=== PATIENT | female | born 1990 | race Caucasian/White ===

== ENCOUNTER → 2017-03-06 | Outpatient (CLI) | payer OTHER ==
[~2017-03-06] MED LIST: ASCO10003 PO; BCPILLS PO; FERR325T51 PO
== END | disposition home or self-care (01) ==
LOC: C.LABSPEC 17:30
PROVIDERS: ATTEND Physician Assistant
DX: N89.8 Other specified noninflammatory disorders of vagina (principal)

== ENCOUNTER → 2017-03-10 | Outpatient (CLI) | payer OTHER ==
[2017-03-10 18:15] LABS: URINE APPEARANCE CLEAR (CLEAR); URINE BILIRUBIN NEG (NEG); URINE COLOR YELLOW; URINE NITRITE NEG (NEG); UROBILINOGEN NEG (NEG)
[2017-03-10 18:23] LABS: MANUAL MICROSCOPIC REQUIRED? NO; REVIEW REQ? NO
== END | disposition home or self-care (01) ==
LOC: C.LABSPEC 17:30
PROVIDERS: ATTEND Obstetrics & Gynecology
DX: Z34.91 Encounter for supervision of normal pregnancy, unspecified, first trimester (principal)

== ENCOUNTER → 2017-03-17 | Outpatient (CLI) | payer OTHER | END | disposition home or self-care (01) | LOC: C.PAPS 07:42 | PROVIDERS: ATTEND Obstetrics & Gynecology | DX: Z34.91 Encounter for supervision of normal pregnancy, unspecified, first trimester (principal) ==

== ENCOUNTER → 2017-03-17 | Outpatient (CLI) | payer OTHER ==
[2017-03-20 00:53] LABS: CHLAMYDIA TRACH RNA*** NOT DETECTED (NOT DETECTED); GC (NEIS GONORRHOEAE)RNA** NOT DETECTED (NOT DETECTED)
== END | disposition home or self-care (01) ==
LOC: C.LABSPEC 16:30
PROVIDERS: ATTEND Obstetrics & Gynecology
DX: Z34.91 Encounter for supervision of normal pregnancy, unspecified, first trimester (principal)

== ENCOUNTER → 2017-03-17 | Outpatient (CLI) | payer OTHER ==
[2017-03-17 15:56] LABS: BASO % 0.2 %; BASO ABS # 0.02 K/uL (0-0.2); COMPLETE YES; EOS % 1.4 %; HEMATOCRIT 39.1 % (37-47); IG% 0.1 %; LYMPH % 27.3 %; LYMPH ABS # 2.27 K/uL (1.2-3.4); MEAN CELL VOLUME 89.5 fL (80-100); MEAN CORPUSCULAR HEMOGLOBIN 29.5 pg (25-34); MEAN PLATELET VOLUME 10.4 fL (7.4-10.4); MONO % 6.7 %; NEUT % 64.3 %; PLATELET COUNT 263 K/uL (130-400); RED BLOOD COUNT 4.37 M/uL (4.2-5.4); WHITE BLOOD COUNT 8.32 K/uL (4.8-10.8)
== END | disposition home or self-care (01) ==
LOC: C.LAB1850 14:43
PROVIDERS: ATTEND Obstetrics & Gynecology
DX: Z34.91 Encounter for supervision of normal pregnancy, unspecified, first trimester (principal)

== ENCOUNTER → 2017-05-19 | Outpatient (CLI) | payer OTHER ==
[2017-05-19 12:49] LABS: GTGD 50 Grams
== END | disposition home or self-care (01) ==
LOC: C.LAB1850 09:53
PROVIDERS: ATTEND Obstetrics & Gynecology
DX: Z34.91 Encounter for supervision of normal pregnancy, unspecified, first trimester (principal)

== ENCOUNTER → 2017-08-04 | Outpatient (CLI) | payer OTHER ==
[2017-08-04 11:19] LABS: URINE APPEARANCE CLEAR (CLEAR); URINE BILIRUBIN NEG (NEG); URINE COLOR YELLOW; URINE EPITHELIAL CELL AUTO >30 /lpf (0-5); URINE NITRITE NEG (NEG); URINE PH 6.5 (4.5-7.5); URINE SPECIFIC GRAVITY 1.015 (1.000-1.030); UROBILINOGEN NEG (NEG)
[2017-08-04 11:21] LABS: MANUAL MICROSCOPIC REQUIRED? NO; REVIEW REQ? NO
[2017-08-04 12:21] LABS: HEMATOCRIT 32.7 % (37-47)
[2017-08-04 12:44] LABS: GTGD 50 Grams
== END | disposition home or self-care (01) ==
LOC: C.LAB1850 10:25
PROVIDERS: ATTEND Obstetrics & Gynecology
DX: Z34.92 Encounter for supervision of normal pregnancy, unspecified, second trimester (principal)

== ENCOUNTER → 2017-09-29 | Outpatient (CLI) | payer OTHER | END | disposition home or self-care (01) | LOC: C.LABSPEC 13:46 | PROVIDERS: ATTEND Obstetrics & Gynecology | DX: Z34.93 Encounter for supervision of normal pregnancy, unspecified, third trimester (principal) ==

== ENCOUNTER 2017-10-28 16:42 | Outpatient (CLI) | payer OTHER ==
[~2017-10-28] VITALS: Ht 167.6 cm; Wt 87.3 kg
[2017-10-28 17:20] VITALS: Ht 167.6 cm; Wt 87.3 kg
[2017-10-28] MEDS ORDERED: FERR1TAB23 (17:21)
[2017-10-28] MEDS ORDERED: PRENTAB26 PO (17:21)
== END 2017-10-28 18:02 | disposition home or self-care (01) ==
LOC: C.LD 16:42 → C.OPB 16:42
PROVIDERS: ATTEND Obstetrics & Gynecology
DX: O48.0 Post-term pregnancy (principal); Z3A.40 40 weeks gestation of pregnancy

== ENCOUNTER 2017-10-28 20:09 | Inpatient (IN) | payer OTHER ==
[~2017-10-28] VITALS: Ht 167.6 cm; Wt 86.4 kg
[~2017-10-28 20:09] MED LIST changes: +FERR1TAB23; +PRENTAB26 PO
[2017-10-28] MEDS ORDERED: LACTATED RINGER'S 1000ML 1,000 ML IV PRN (20:26)
[2017-10-28] MEDS ORDERED: LACTATED RINGER'S 1000ML 1,000 ML IV SCH (20:26)
[2017-10-28 20:53] LABS: HEMATOCRIT 35.9 % (37-47); HEMOGLOBIN 12.1 g/dL (12.0-16.0); MEAN CELL VOLUME 89.1 fL (80-100); MEAN CORPUSCULAR HGB CONC 33.7 g/dl (32-36); PLATELET COUNT 281 K/uL (130-400); RED CELL DISTRIBUTION WIDTH CV 13.6 % (11.5-14.5); RED CELL DISTRIBUTION WIDTH SD 44.7 fL (36.4-46.3); WHITE BLOOD COUNT 11.11 K/uL (4.8-10.8)
[2017-10-28] MEDS ORDERED: EpHEDrine SULFATE INJ 50 MG/ML AMP ONE (21:01)
[2017-10-28] MEDS ORDERED: BUPIVACAINE 0.25% 30 ML VIAL ONE (21:01)
[2017-10-28] MEDS ORDERED: FENTANYL 2MCG/ML ROPIV 1.25MG/ML 100ML BAG EPI ONE (21:02)
[2017-10-28] MEDS ORDERED: FENTANYL CITRATE INJ 50 MCG/1 ML 2 ML VIAL ONE (21:02)
[2017-10-28] MEDS ORDERED: NALOXONE HCL INJ 1 MG in SODIUM CHLORIDE 0.9% 1000ML 1,000 ML IV PRN (21:04)
[2017-10-28] MEDS ORDERED: LACTATED RINGER'S 1000ML 500 ML IV PRN (21:04)
[2017-10-28] MEDS ORDERED: NALOXONE HCL INJ 0.4 MG/1 ML VIAL/CARP IV PRN (21:15)
[2017-10-28] MEDS ORDERED: ONDANSETRON INJ 2 MG/ML 2 ML VIAL IV PRN (21:15)
[2017-10-28] MEDS ORDERED: NALBUPHINE HCL INJ 10 MG/ML AMP IV PRN (21:15)
[2017-10-28] MEDS ORDERED: EpHEDrine SULFATE INJ 50 MG/ML AMP IV PRN (21:15)
[2017-10-28] MEDS ORDERED: FENTANYL 2MCG/ML ROPIV 1.25MG/ML 100ML BAG EPI PRN (21:15)
[2017-10-28] MEDS ORDERED: DiphenhydrAMINE HCL 50 MG/ML VIAL IV PRN (21:15)
[2017-10-28 21:24] VITALS: Ht 167.6 cm; Wt 86.4 kg
[2017-10-28] MEDS ORDERED: OXYTOCIN 30 UNITS/500ML NSS IV ONE (21:45)
[2017-10-28] MEDS ORDERED: METHYLERGONOVINE MALEATE 0.2 MG/ML AMP ONE (21:56)
[2017-10-28] MEDS ORDERED: HYDROCORTISONE ACETATE 25 MG SUPP PR PRN (22:15)
[2017-10-28] MEDS ORDERED: LANOLIN OINT EXT PRN (22:15)
[2017-10-28] MEDS ORDERED: OXYTOCIN 30 UNITS/500ML NSS IV PRN (22:15)
[2017-10-28] MEDS ORDERED: ACETAMINOPHEN 325 MG TAB PO PRN (22:15)
[2017-10-28] MEDS ORDERED: BENZOCAINE 20% AER SPR 82.5 GM CAN EXT PRN (22:15)
[2017-10-28] MEDS ORDERED: IBUPROFEN 600 MG TAB PO PRN (22:15)
[2017-10-28] MEDS ORDERED: METHYLERGONOVINE MALEATE 0.2 MG/ML AMP IM ONE (22:15)
[2017-10-28] MEDS ORDERED: SUPERCREAM 0.870 % 15GM JAR EXT PRN (22:15)
[2017-10-28] MEDS ORDERED: ACETAMINOPHEN/CODEINE 300/30MG TAB PO PRN ×2 (22:15)
[2017-10-28] MEDS ORDERED: IBUPROFEN 600 MG TAB ONE (22:19)
--- NOTE | 2017-10-28 22:21 | Anesthesia Procedure Note ---
Anesthesia Epidural Removal Nt Date & Time Oct 28, 2017 at 22:21 Vital Signs Pain Intensity: 0.0 Notes Mental Status: alert / awake / arousable, participated in evaluation Nausea / Vomiting: adequately controlled Pain: adequately controlled Airway Patency, RR, SpO2: stable & adequate BP & HR: stable & adequate Hydration State: stable & adequate Neuraxial Anesthesia: was administered, sensory block is resolving Anesthetic Complications: no major complications apparent, pt satisfied with anesthetic care Epidural: removed without complications, with tip intact
--- NOTE | 2017-10-28 23:48 | DELIVERY SUMMARY ---
DATE OF OPERATION: 10/28/2017 DATE OF DELIVERY: 10/28/2017 FINDINGS: Viable male infant with Apgars of 7 and 8. Arterial and venous cord gases are pending. Moderate meconium with meconium stained baby and placenta. Placenta sent for pathological evaluation. Small midline laceration repaired with interrupted 4-0 Vicryl. Estimated blood loss 300 mL. LABOR NOTE: The patient is a 27-year-old 3, para 1 with an EDC of 25 October at 40+ weeks gestational age; who presented to labor and delivery in active labor. The patient had been seen earlier in the office today. Contractions increased in intensity, and patient presented to labor and delivery. The patient denies rupture of membranes. The patient's course remarkable for possible debris noted in the lateral ventricles at a 20-week anatomy ultrasound. The patient had a subsequent maternal medicine consult, who could not confirm this finding. Incidental polyhydramnios was noted at the maternal medicine consult, but that resolved spontaneously. Blood types for the for A positive, antibody negative, rubella immune. Hepatitis B negative. She declined a quad screen. She had normal 1 hour Glucola x2 and a negative 3rd trimester beta strep culture. Upon admission, patient was 7 to 8 cm dilated, 100% effaced and +1 station. Tracing was category 2. The patient requested and received an epidural. Following the epidural, patient was fully dilated. Artificial rupture of membranes for moderate meconium fluid, dark stained, but no particulate matter. The patient went on to deliver over the next 3 contractions, delivering a viable male infant. Good cry at terminating meconium resuscitation. Cord was clamped and cut. Cord gases, cord blood samples obtained. Placenta was delivered spontaneously. There was some uterine atony, which was treated with IM Methergine along with the IV Pitocin. Small midline laceration repaired with an interrupted 4-0 Vicryl suture. Estimated blood loss 300 mL. Sponge and needle count was correct. I attest to the content of the Intraoperative Record and any orders documented therein. Any exception s are noted below.
[2017-10-29] VITALS (7 sets, daily range): BP systolic 116–133; BP diastolic 71–87; PULSE 87–105; TEMP 36.4–37; O2SAT 99
--- NOTE | 2017-10-29 06:02 | OB/GYN Progress Note ---
HAZARDOUS MATERIAL SPECIALIST Progress Note Date of Service Oct 29, 2017. Subjective conversation w/ patient, physical exam, chart review, lab review Ambulation: ambulating normally Voiding: no voiding problems Passing Gas: Yes Diet Tolerance: Regular Diet Lochia: Small Feeding Type: Breast Feeding Review of Systems Constitutional: No fever Respiratory: No cough, No shortness of breath Cardiac: No chest pain, No edema Abdomen: No pain, No nausea, No vomiting Female : No dysuria Objective Vital Signs Date Time Temp Pulse Resp B/P (MAP) Pulse Ox O2 Delivery O2 Flow Rate FiO2 10/29/17 04:22 36.6 87 16 116/71 (86) Room Air 10/29/17 00:54 Room Air 10/29/17 00:51 36.6 105 18 119/71 (87) Room Air Physical Exam General Appearance: WELL-APPEARING, WD/WN, NO APPARENT DISTRESS Respiratory/Chest: lungs clear, normal breath sounds Cardiovascular: regular rate, rhythm, no edema Abdomen: non tender, soft Fundus: Firm Extremities: non-tender, normal inspection, no pedal edema Laboratory Results Last 24 Hours Test 10/28/17 20:42 10/29/17 04:44 White Blood Count 11.11 K/uL Red Blood Count 4.03 M/uL Hemoglobin 12.1 g/dL Hematocrit 35.9 % Mean Corpuscular Volume 89.1 fL Mean Corpuscular Hemoglobin 30.0 pg Mean Corpuscular Hemoglobin Concent 33.7 g/dl RDW Standard Deviation 44.7 fL RDW Coefficient of Variation 13.6 % Platelet Count 281 K/uL Mean Platelet Volume 11.0 fL Assessment and Plan Post- Day Number: 1 Continue Routine Care: 27 F now 2 Delivered vaginally on 10/28 22:07 @ 40 wks Pt is GBS-/A+/RI. Pt is doing well clinically. Reviewed vital signs, WNL. Hgb 12.1 on admission, 10.5 today. Plan, continue care; 1. Encourage ambulation 2. Monitor lochia 3. Support Resident Physician Supervision Note: I interviewed and examined the patient. Discussed with Dr. Beard and agree with findings and plan as documented in the note. Any exceptions or clarifications are listed here: [None] Documented By: Beck Branham
[2017-10-29 06:41] LABS: HEMATOCRIT 31.7 % (37-47); HEMOGLOBIN 10.5 g/dL (12.0-16.0)
[2017-10-29] MEDS ORDERED: DIPHTHERIA/TETANUS/PERTUSSIS 0.5 ML SYR/VIAL IM. ONE (09:00)
[2017-10-29] MEDS: FERROUS SULFATE 325 MG TAB PO SCH (09:29)
[2017-10-29] MEDS: DOCUSATE SODIUM 100 MG CAP PO SCH ×2 (09:29→19:45)
[2017-10-29] MEDS ORDERED: BISACODYL 5 MG TABEC PO SCH (20:00)
--- NOTE | 2017-10-30 06:09 | Discharge Instructions ---
Discharge Instructions Date of Service Oct 30, 2017. Admission Reason for Admission: Check Labor Discharge Discharge Diagnosis / Problem: vaginal delivery Discharge Goals Goal(s): Routine recovery after delivery Medications Continue Dispensed Medications: supercream, dermaplast, tucks, lansinoh Activity Recommendations Activity Limitations: per Instructions/Follow-up section . Instructions / Follow-Up Instructions / Follow-Up ACTIVITY RECOMMENDATIONS: * Gradual return to full activity over the next 2-3 weeks. * No lifting - nothing heavier than baby over the next 2-3 weeks. * Do not engage in vigorous exercise, sexual activity or sports until cleared by your physician. * Do not drive or operate any motorized equipment until cleared by your physician. * You may shower/bathe daily. MEDICATIONS: For discomfort or pain, you may use Acetaminophen (Tylenol), Ibuprofen (Advil), or Naproxen (Aleve) following the package directions. For constipation you may use Colace following the package directions. BREAST CARE: If you are not breast feeding: * Wear a supportive bra 24 hours a day for one to two weeks. * Avoid stimulating your breasts and nipples as much as possible during the first few weeks after delivery. * When taking a shower, have the warm water hit your back, not breasts. * When your breasts feel full, apply ice packs. Usually three to four times a day helps ease the discomfort. * Take a mild pain medication (Tylenol / Motrin) when you are uncomfortable. If breast feeding: * Use breast milk to lubricate nipples. Lansinoh cream may be used for sore nipples. You do not need to remove cream prior to breast feeding. If using a different brand of cream, check the label for directions regarding removal of cream prior to nursing. * Wear a supportive bra. * If having problems with breasts or breast feeding, call a education sales consultant or your health care provider. EPISIOTOMY CARE: After delivery, if you have an episiotomy (stitches), the following steps will ease discomfort and aid healing. * For the first 24 hours after delivery, place ice packs next to your episiotomy to help reduce swelling. * After the first 24 hour-period, sitz baths, either portable or in the tub, are suggested. A shower with a shower arm sprayed over the episiotomy may be comforting. * Flor care should be done after each voiding and bowel movement. Squirt warm water from a plastic bottle over the perineum (region of the body between the anus and urinary opening) and pat dry. * Use Dermoplast to ease discomfort. Shake container. Compton directly over the episiotomy. Place a Tucks on a clean sanitary pad next to your episiotomy. SPECIAL CARE INSTRUCTIONS: When you are discharged from the hospital, it is important for you to follow the instructions listed below: * During the first week at home, you should be able to care for yourself and your baby. In addition, the usual light household activities are encouraged. * Limit your activities to the way you feel. Do not try to clean the house or move furniture. Be sensible. * If you actively engage in sports and have done so up until the time of your delivery, you may resume these activities as soon as you feel able. This may take up to one month or even longer. Use good judgment. * Continue to take your vitamins for at least six weeks after the of your baby. * Your diet need not be limited unless you were on a special diet before your delivery. Breast-feeding mothers need around 2500 calories per day and at least 64-80 ounces of fluid per day (8 to 10 glasses). * You should eat foods from the four major food groups. Crash diets or fad diets are to be avoided. Eating lean meats, fresh fruits and vegetables, low-fat dairy products, high fiber foods and a regular exercise program, will help you get back to your pre- weight without putting your health at risk. * Constipation is sometimes a problem after delivery. Take a mild laxative as needed. If breast feeding, Milk of Magnesia is acceptable to use. You may use a suppository or Fleets enema if no episiotomy. * A daily shower or tub bath is suggested. Be sure to thoroughly and gently dry the perineum. * A bloody vaginal discharge will usually continue until around four weeks post . A small amount of bleeding may continue for as long as six weeks. Vaginal discharge changes from the bright red bleeding after delivery to pink then brownish and finally yellowish-pink before becoming white and disappearing. * Bleeding may increase with activity. Your first period may come in 4-8 weeks. If you are breast feeding, your period may be delayed even longer. * Murphy (sex) can begin whenever both you and your partner feel comfortable and do not have any form of genital infection. It is recommended that you wait at least six weeks for internal and external healing to occur. If you have questions, please talk to your health care practitioner. A condom should be used to prevent infection and . * Foreplay, gentle intercourse and lubrication is very important the first several times to prevent pain. A water-based lubricant such as K-Y jelly or Astroglide may be used. * If you have RH negative blood and your baby is RH positive, you will receive RHOGAM by injection prior to discharge. The nurse will give you a card to keep with you that has the date and place that you received RHOGAM after delivery. * During your care, you had a Rubella screen done to check for the presence of rubella antibodies in your blood. If your test was negative, you will receive a Rubella vaccine prior to discharge. This vaccine may cause a fever, soreness at the injection site and flu-like symptoms. If these symptoms persist, notify your health care practitioner. is not advised for one month after a Rubella vaccine. * Verbalizes understanding of car seat law as reviewed with patient nursing. * Car Seat hand-out given and reviewed with patient by nursing. * Shaken baby information reviewed with patient by nursing. Call you doctor if: * Heavy bleeding (saturating several pads an hour) or passing clots the size of your fist. * A fever >101 degrees F (38.3 degrees C) on two occasions four hours apart and /or chills. * Unusual pain in the pelvic or vaginal areas. * "Baby Blues" lasting longer than two weeks. If you have any questions or concerns, call your health care practitioner at . FOLLOW UP VISIT: * Please call the office at to schedule a 6 week examination. It is important you keep this appointment. It is important for you to make arrangements for either yearly or twice yearly check-ups thereafter. Current Hospital Diet Patient's current hospital diet: Regular OB Diet Discharge Diet Recommended Diet: Regular OB Diet Pending Studies Studies pending at discharge: no Medical Emergencies . Who to Call and When: Medical Emergencies: If at any time you feel your situation is an emergency, please call 911 immediately. . Non-Emergent Contact Non-Emergency issues call your: Residential Living Assistant . . "Provider Documentation" section prepared by Leon Beard. . VTE Core Measure Inpt VTE Proph given/why not?: Treatment not indicated
--- NOTE | 2017-10-30 06:49 | OB/GYN Progress Note ---
CUTTER INSPECTOR Progress Note Date of Service Oct 30, 2017. Subjective conversation w/ patient, conversation w/ family, physical exam, chart review, lab review Ambulation: ambulating normally Voiding: no voiding problems Passing Gas: Yes Diet Tolerance: Regular Diet Lochia: Small Feeding Type: Breast Feeding Pain: moderate cramping with feeding Review of Systems Constitutional: No fever, No chills Respiratory: No cough, No shortness of breath Cardiac: No chest pain, No palpitations Abdomen: No pain, No nausea, No vomiting Female : No dysuria Objective Vital Signs Date Time Temp Pulse Resp B/P (MAP) Pulse Ox O2 Delivery O2 Flow Rate FiO2 10/29/17 23:45 101 20 133/87 (102) Room Air 10/29/17 23:45 Room Air 10/29/17 19:40 37.0 101 18 118/75 (89) Room Air 10/29/17 16:30 Room Air 10/29/17 16:00 36.7 94 18 116/78 (91) Room Air 10/29/17 12:20 36.8 99 18 126/79 (95) Room Air 10/29/17 08:00 36.4 87 18 125/83 (97) 99 Room Air 10/29/17 08:00 99 Room Air Physical Exam General Appearance: WELL-APPEARING, WD/WN, NO APPARENT DISTRESS Respiratory/Chest: lungs clear, normal breath sounds Cardiovascular: regular rate, rhythm, no murmur Abdomen: non tender, soft Fundus: Firm, Relation to Umbilicus (below the umbilicus ) Extremities: normal inspection, no pedal edema, no calf tenderness Assessment and Plan Post- Day Number: 2 Continue Routine Care: 27 F now 2 Delivered vaginally on 10/28 22:07 @ 40 wks Pt is GBS-/A+/RI. Pt is doing well clinically. Reviewed vital signs, WNL. Hgb 12.1 on admission, 10.5 yesterday Plan, continue care; 1. DC home today/Discussed discharge instructions with the patient Resident Physician Supervision Note: I was present with Dr. Beard during the history and exam. I discussed the case with the resident and agree with the findings and plan as documented in the note. Any exceptions or clarifications are listed here: PPD#2 doing well. Anticipate discharge home today. Discharge instructions discussed. RTO 6w. Documented By: Clarissa Gutierrez
[2017-10-30 08:00] VITALS: BP 121/79; PULSE 90; TEMP 36.8
[2017-10-30] MEDS: FERROUS SULFATE 325 MG TAB PO SCH (08:33)
[2017-10-30] MEDS: DOCUSATE SODIUM 100 MG CAP PO SCH (08:33)
[2017-10-30 12:56] VITALS: BP_DIAS 79; PULSE 90; TEMP 36.8
== END 2017-10-30 13:40 | disposition home or self-care (01) | DRG 775 ==
LOC: C.LD 20:09 → C.OPB 20:09 → C.LD 20:28 → C.OPB 20:28 → C.OBG 10-29 00:27
PROVIDERS: ADMIT Obstetrics & Gynecology; ATTEND Obstetrics & Gynecology
PROC: 0KQM0ZZ Repair Perineum Muscle, Open Approach (ICD-10-PCS; principal; 2017-10-28)
PROC: 10E0XZZ Delivery of Products of Conception, External Approach (ICD-10-PCS; principal; 2017-10-28)
DX: O70.1 Second degree perineal laceration during delivery (principal); Z37.0 Single live birth; O77.0 Labor and delivery complicated by meconium in amniotic fluid; O75.89 Other specified complications of labor and delivery; Z3A.40 40 weeks gestation of pregnancy

== ENCOUNTER 2019-09-04 20:51 | Inpatient (IN) ==
--- OUTSIDE RECORDS SUMMARY | 2019-09-04 20:54 | External Medical Summary | Continuity of Care Document ---
:1990 Author Name Marcela Alonso, Provider Address Unavailable Unavailable , Care Team Providers Name Role Phone AmandaG eCleste, Provider Unavailable [email or web address] PCP, UNKNOWN Unavailable Unavailable Unavailable Unavailable Unavailable Problems Oral contraceptive prescribed (V25.01) (Z30.011) Encounter for visit (V24.2) (Z39.2) Allergies and Adverse Reactions No Known Drug Allergies (Allergy) Medications Oanh 0.35 MG Oral Tablet; TAKE ONE TABLET BY MOUTH Celeste Gordon Start: 09-Dec-2017 Quantity: 1 28 Tablet Pack Refills: 12 /Iron TABS Refills: 0 Procedures History of Oral Surgery Tooth Extraction Status: Completed History of Dilation And Curettage Status : Completed Immunizations Fluzone Quadrivalent 0.5 ML Intramuscular Suspension On: Jul-2017 9:49 Lot #: [id number], SANOFI PASTEUR Tdap (Adacel) On: 04-Aug-2017 9:50 Lot #: [id number], SANOFI PASTEUR Family History Mother Family history of anemia (V18.2) (Z83.2) Status: Active Brother Family history of hypertension (V17.49) (Z82.49) Status: Act zonia Grandmother Family history of diabetes mellitus (V18.0) (Z83.3) Status: Active Father Family history of depression (V17.0) (Z81.8) Status: Active Sibling Family history of depression (V17.0) (Z81.8) Status: Active Social History - Smoking Status Former smoker Plan of Treatment Planned Observations Planned Goals not documented Results No Known Results Results not documented Encounters Appointment; Beck Branham M.D. 09-Dec-2017 11:00 Encounter Diagnosis: Problem not documented Appointment; Clarissa Gutierrez DO 28-Oct-2017 15:50 Encounter Diagnosis: Problem not documented Appointment; OB SC1, Nonstress Test 28-Oct-2017 15:00 Encounter Diagnosis: Problem not documented Appointment; Clarissa Gutierrez DO 20-Oct-2017 11:10 Encounter Diagnosis: Problem not documented Appointment; Ayla Stevenson M.D. 13-Oct-2017 15:20 Encounter Diagnosis: Problem not documented Appointment; Clarissa Gutierrez DO 06-Oct-2017 8:40 Encounter Diagnosis: Problem not documented Appointment; Miguel Alvarez M.D. 29-Sep-2017 10:00 Encounter Diagnosis: Problem not documented Appointment; Ayla Stevenson M.D. 15-Sep-2017 8:40 Encounter Diagnosis: Problem not documented Appointment; Kay Delaney M.D. 04-Sep-2017 11:10 Encounter Diagnosis: Problem not documented
[2019-09-04] MEDS ORDERED: SODIUM CHLORIDE 0.9% 1000ML 1,000 ML IV ONE (21:51)
[2019-09-04 22:01] LABS: Basophils # (auto) 0.02 K/uL (0-0.2); Basophils % (auto) 0.2 %; Eosinophils # (auto) 0.09 K/uL (0-0.5); Eosinophils % (auto) 0.8 %; Hemoglobin 8.4 g/dL (12.0-16.0); Immature Granulocytes # (auto) 0.04 K/uL (0.00-0.02); Immature Granulocytes % (auto) 0.3 %; Lymphocytes # (auto) 1.19 K/uL (1.2-3.4); Lymphocytes % (auto) 10.4 %; Mean Corpuscular Volume 73.3 fL (80-100); Mean Platelet Volume 9.3 fL (7.4-10.4); Monocytes # (auto) 0.61 K/uL (0.11-0.59); Monocytes % (auto) 5.3 %; Neutrophils # (auto) 9.48 K/uL (1.4-6.5); Platelet Count 468 K/uL (130-400); RDW Coefficient of Variation 14.9 % (11.5-14.5); Red Blood Count 3.82 M/uL (4.2-5.4); White Blood Count 11.43 K/uL (4.8-10.8)
[2019-09-04 22:06] LABS: Pregnancy Test, Serum Negative (Negative)
[2019-09-04 22:08] LABS: Alanine Aminotransferase 13 U/L (12-78); Albumin Level 2.8 gm/dl (3.4-5.0); Aspartate Aminotransferase 9 U/L (15-37); BUN Creatinine Ratio 20.5 (10-20); Blood Urea Nitrogen 13 mg/dl (7-18); Calcium 8.9 mg/dl (8.5-10.1); Carbon Dioxide 25 mmol/L (21-32); Chloride 103 mmol/L (98-107); Est GFR (African American) 140.7; Est GFR (Non-African American) 121.4; Glucose 104 mg/dl (70-99); Lipase 125 U/L (73-393); Magnesium 1.8 mg/dl (1.8-2.4); Potassium 3.9 mmol/L (3.5-5.1); Sodium 136 mmol/L (136-145)
--- NOTE | 2019-09-04 22:10 | XRay Report ---
XR chest 1V portable CLINICAL HISTORY: 29 years-old Female presenting with chest pain. TECHNIQUE: Portable upright AP view of the chest was obtained. COMPARISON: 09/04/2019. FINDINGS: Cardiomediastinal silhouette normal. Obscuration of the left hemidiaphragm. The left heart border rem ains distinct. Left pleural effusion not excluded. No pneumothorax. Osseous structures normal. Upper abdomen normal. IMPRESSION: 1. Left lower lobe infiltrate potentially with a small left pleural effusion. This is most likely ev idence of left lower lobe pneumonia with a possible parapneumonic effusion. PA and lateral views may better demonstrate this. This should be followed to resolution. Electronically signed by: Taco Boone M.D. 09/04/2019 10:08 PM
[2019-09-04 22:14] LABS: Albumin Globulin Ratio 0.6 (0.9-2); Alkaline Phosphatase 56 U/L (45-117); Bilirubin,Total 0.2 mg/dl (0.2-1); D Dimer 2230 ug/L FEU (0-500); NT Pro B Type Natriuretic Pept 47 pg/ml (0-450); Total Protein 7.8 gm/dl (6.4-8.2); Troponin I < 0.015 ng/ml (0-0.045)
[2019-09-04 22:35] LABS: Hypochromasia Present; Lyme Ab IgG w/WB Rflx Negative (Negative)
[2019-09-04] MEDS ORDERED: fentaNYL citrate 100 MCG/2 ML VIAL IV PRN (22:40)
[2019-09-04] MEDS ORDERED: OPTIRAY 320 125ml IV PRN (22:46)
[2019-09-04 22:52] LABS: Lyme Ab IgM w/WB Rflx Equivocal (Negative)
--- NOTE | 2019-09-04 22:55 | CT Scan Report ---
CT angio chest PE protocol CLINICAL HISTORY: 29 years-old Female presenting with atypical chest pain, cough for one week, shortn ess of breath, clinical concern for pulmonary embolus. TECHNIQUE: Multidetector CT angiography of the chest was performed after administration of intravenou s contrast. 3-D volumetric and/or maximum intensity projection (MIP) images were subsequently reconst ructed for review. IV contrast: 103 mL of Optiray 320. One or more dose lowering techniques were used consistent with the principles of ALARA (as low as reasonably achievable), including automatic expos ure control, mA or kV adjustment to individual patient size, and/or use of iterative reconstruction. COMPARISON: Chest x-ray performed earlier today. CT DOSE (mGy.cm): The estimated cumulative dose is 245.14 mGy.cm. FINDINGS: Retail Account Specialist topogram: Unremarkable. Pulmonary vasculature: The study is suboptimal for the assessment of the pulmonary vascular tree secondary to respiratory mo tion artifact. No filling defect within the pulmonary arteries to suggest embolus. Main pulmonary art dayo is not enlarged. No flattening of the interventricular septum. No intracardiac filling defect. No reflux of contrast into the hepatic veins. Remaining chest: Soft tissues: Normal thyroid and thoracic inlet. Bilateral prominent hilar lymph nodes. Soft tissue i n anterior mediastinum likely residual thymus. Normal aorta. Normal heart size. No pericardial or ple ural effusion. Upper abdomen normal. Lungs and airways: No pneumothorax. Central airways patent. Pulmonary arteries are not significantly enlarged relative to adjacent bronchi. No interlobular septal thickening. Consolidation in the medial basal right lower lobe and more extensively in the basal segments of the left lower lobe. Solid 4 mm polygonal nodule in the right middle lobe, which has a benign morphology. Calcified granuloma in the right lower lobe. Musculoskeletal: Normal osseous structures. IMPRESSION: 1. No evidence of pulmonary embolus. 2. Bilateral lower lobe consolidation greater on the left system with multifocal pneumonia. 3. No parapneumonic effusion. Electronically signed by: Taco Boone M.D. 09/04/2019 10:54 PM
[2019-09-04] MEDS ORDERED: VANCOMYCIN CONSULT ACTIVE ONE (23:20)
[2019-09-04] MEDS ORDERED: VANCOMYCIN HCL 1,250 MG in SODIUM CHLORIDE 0.9% 500 ML IV ONE (23:20)
[2019-09-04] MEDS ORDERED: VANCOMYCIN CONSULT ACTIVE PRN (23:20)
[2019-09-04] MEDS ORDERED: PIPERACILLIN/TAZOBACTAM 4.5 GM/120 ML BAG IV ONE (23:20)
[2019-09-04] MEDS ORDERED: AZITHROMYCIN 250 MG TAB PO ONE (23:20)
[2019-09-04] MEDS ORDERED: PIPERACILL/TAZOBAC CONSULT ACTIVE PRN (23:20)
[2019-09-04] MEDS ORDERED: ALBUT/IPRATROP 3MG/0.5MG NEB 3 ML VIAL NEB STA (23:23)
[2019-09-04] MEDS ORDERED: ACETAMINOPHEN 1,000 MG/100 ML VIAL IV STA (23:23)
--- NOTE | 2019-09-05 00:21 | History & Physical Report ---
Date of Service September 05, 2019 Assessment & Plan (1) Sepsis: Ms. Elkins is a 29-year-old female with a past medical history of anemia who presents to the emergency department due to left-sided chest pain, on a background of a cough for the last 1.5 months. ED course: 1 g IV acetaminophen, 4.5 g IV Zosyn, 500 mg p.o. azithromycin, 1250 mg IV vancomycin, 1 L normal saline bolus, 1 L normal saline at 125 mLs/hour, 3 mils DuoNeb, 50 mcg IV fentanyl citrate Sepsis secondary to multifocal pneumonia -Admit to Med/Surg with telemetry monitoring -Patient meets criteria for sepsis with tachycardia, tachypnea, with a pulmonary source of infection -CTA negative for PE, however shows bilateral lower lobe consolidation with multifocal pneumonia -Influenza swab negative -Blood cultures drawn x2 and pending -Continue Zosyn, vancomycin and azithromycin -MRSA swab ordered -DuoNebs ordered every 4 hours as needed for shortness of breath -Continue IVF with NS at 125 mls/hr x 2 bags -Patient having left-sided chest pain, related to her pneumonia -> Tylenol and Toradol ordered as needed for pain Anemia -Patient reportedly had a history of anemia requiring transfusion in the past. This was felt to be secondary to ongoing, daily vaginal bleeding when she had her Mirena IUD - this has since resolved, as the patient is on an OCP and no longer has menses -Hemoglobin 8.4 on admission, this is a drop from 10.5 in 11/12 -MCV low at 73.3 -Patient denies any history of GI bleeding, or dark stools -Iron studies ordered with a.m. labs -Trend CBC, transfuse if hemoglobin drops below 7 Equivocal Lyme IgM -Patient has an equivocal test result for Lyme disease IgM antibody, and negative IgG -Western blot pending -Patient denies any signs or symptoms of Lyme disease CODE STATUS: Full DVT prophylaxis: 40 mg Lovenox SQ daily Disposition: Admit to med/surg with telemetry monitoring (2) Multifocal pneumonia: (3) Anemia: (4) Borderline results on serologic testing for Lyme disease: History of Present Illness Chief Complaint: Chest pain Primary Care Provider: NO PCP Ms. Elkins is a 29-year-old female with a past medical history of anemia who presents to the emergency department due to left-sided chest pain, on a background of a cough for the last 1.5 months. She states that she has had an ongoing cough for the last month and a half, productive, without the presence of blood. She did have a fever approximately 1 week ago, with her maximum temperature being 100.5 F. She presented to urgent care for this, and received a prescription for Augmentin. She did not have a chest x-ray done at this time. She has had 4 days of the Augmentin, and presented to the emergency department due to the fact that she was not feeling better, and developed this new left- sided chest pain with coughing. She denies any shortness of breath. She reports feeling nauseous, but denies any vomiting or diarrhea. Her notes that she has been more fatigued than usual. 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 She has not traveled outside the [facility] in the last 6 months. With regards to her history of anemia, her hemoglobin was in the 45 range approximately 4 years ago, requiring the transfusion of 2 units of blood. This was attributed to her ongoing menses - she had the Mirena IUD, and had bleeding on a daily basis. She is currently an OCP, and does not have periods anymore. She used to be on iron supplementation, however is currently not taking anything. Of note, she is a former smoker, however quit smoking 8 years ago. Allergies Allergy/AdvReac Type Severity Reaction Status Date / Time No Known Allergies Allergy Unverified 09/04/19 21:55 Home Medications Home Medications Medication Instructions Recorded Confirmed Type amoxicillin-pot clavulanate 1 tab PO Q12 09/04/19 09/04/19 History [Augmentin] benzonatate [Tessalon Perles] 100 - 200 mg PO TID PRN 09/04/19 09/04/19 History desogestrel-ethinyl estradiol 1 tab PO DAILY 09/04/19 09/04/19 History [Enskyce] docusate sodium [Stool Softener] 0 mg PO DAILY 09/04/19 09/04/19 History Past Med/Surg History Medical History Anemia Social History Preferred Language: Jamaican Beliefs That Will Affect Care: None Current Living Situation: Spouse and Family Other Information That Helps Us Care for You: No Feels Safe at Home: Yes Safety Concerns: Feels Safe At This Time Smoking Status: Former smoker Do You Dip or Chew Tobacco: No ; Second Hand Exposure: No ; Tobacco Cessation Education Requested by Patient: No Hx Alcohol Use: No Hx Substance Use: No Review of Systems Constitutional: + fever, + fatigue, + weakness and + anorexia Respiratory: + cough; no dyspnea Cardiovascular: + chest pain; no radiating jaw, neck or arm pain, no palpitations, no edema and no calf pain Gastrointestinal: + nausea; no abdominal pain, no vomiting and no change in bowel habits Genitourinary: no dysuria, no difficulty urinating and no urinary frequency Integumentary: no rash Physical Exam Constitutional: WD/WN, vitals as above + ill appearing Eyes: PERRL, conjunctivae normal, anicteric sclerae ENMT: external ear and nose normal, oropharynx normal Respiratory: normal respiratory effort; no respiratory distress Auscultation: + diminished lung sounds (Coarse breath sounds at bilateral bases) Cardiovascular: Rate/Rhythm: regular rhythm and + tachycardic Vessels: posterior tibial pulses present and dorsalis pedis pulses present Extremities: normal capillary refill; no calf tenderness and no pedal edema Gastrointestinal (Abdomen): normal bowel sounds, soft, nontender, no hepatos plenomegaly Musculoskeletal: no cyanosis or clubbing, extremities motor strength 5/5 Skin: no rashes, warm and dry (Pale skin) Psychiatric: A+Ox3, euthymic affect Results & Data Vital Signs (Past 12 Hours) Vital Signs Temp Pulse Pulse Resp BP BP Pulse Ox 09/05/19 00:05 115 H 24 98 09/05/19 00:00 115 H 29 H 114/74 98 09/04/19 23:45 115 H 30 H 107/71 99 09/04/19 23:30 113 H 27 H 115/73 100 09/04/19 23:01 117 H 34 H 98 09/04/19 23:00 117 H 29 H 124/72 99 09/04/19 22:50 114 H 31 H 97 09/04/19 22:49 117 H 37 H 96 09/04/19 22:48 110/75 97 09/04/19 22:32 105 H 26 H 125/74 100 09/04/19 22:30 106 H 31 H 100 09/04/19 22:20 105 H 27 H 100 09/04/19 22:15 102 H 27 H 106/63 100 09/04/19 22:10 102 H 26 H 100 09/04/19 22:01 103 H 28 H 100 09/04/19 22:00 103 H 28 H 101/61 100 09/04/19 21:50 105 H 30 H 100 09/04/19 21:45 97 H 26 H 105/67 100 09/04/19 21:40 99 H 28 H 100 09/04/19 21:31 98 H 25 H 97 09/04/19 21:30 101 H 38 H 111/69 99 09/04/19 21:23 63 28 H 76/37 L 98 09/04/19 21:20 57 L 23 100 09/04/19 21:10 77 99 H 35 H 116/73 116/73 100 09/04/19 20:54 36.9 C 131 H 18 139/78 100 Code Status & VTE Plan VTE Prophylaxis Plan VTE Prophylaxis will be ordered: Yes Supervising Physician Co-Signing Physician Notes Patient was seen and examined by me personally. I reviewed the chart, the orders and discussed the case in detail with Dr. Schuyler Man MD. I read this H&P and agree with its contents to entirety. Resident Activity Tracking Resident Involvement: Resident Care Provided Care Provided: Adult Hospital Medicine
[2019-09-05 00:45] LABS: Influenza A virus by PCR Neg for Influ A (Neg); Influenza B virus by PCR Neg for Influ B (Neg)
[2019-09-05] MEDS: SODIUM CHLORIDE 0.9% 1000ML 1,000 ML IV SCH ×3 (00:50→16:29)
[2019-09-05] MEDS ORDERED: ALBUT/IPRATROP 3MG/0.5MG NEB 3 ML VIAL NEB PRN (01:33)
[2019-09-05] MEDS ORDERED: KETOROLAC TROMETHAMINE 15 MG/ML VIAL IV PRN (01:33)
[2019-09-05] MEDS ORDERED: ACETAMINOPHEN 325 MG TAB PO PRN (01:33)
[2019-09-05] MEDS: PIPERACILLIN/TAZOBACTAM 3.375 GM in DEXTROSE 5% 100 ML IV SCH ×3 (06:02→22:03)
--- NOTE | 2019-09-05 06:03 | Billing Data ---
Coding Level of Care Code 19360 Initial Inpt Care Lvl 2
[2019-09-05 06:31] LABS: Basophils # (auto) 0.01 K/uL (0-0.2); Basophils % (auto) 0.1 %; Hematocrit (blood only) 24.2 % (37-47); Hemoglobin 7.2 g/dL (12.0-16.0); Immature Granulocytes # (auto) 0.03 K/uL (0.00-0.02); Immature Granulocytes % (auto) 0.3 %; Lymphocytes # (auto) 0.53 K/uL (1.2-3.4); Lymphocytes % (auto) 5.8 %; Mean Corpuscular Hgb Conc 29.8 g/dL (32-36); Mean Corpuscular Volume 73.8 fL (80-100); Mean Platelet Volume 9.1 fL (7.4-10.4); Monocytes # (auto) 0.49 K/uL (0.11-0.59); Monocytes % (auto) 5.4 %; Neutrophils # (auto) 8.01 K/uL (1.4-6.5); Neutrophils % (auto) 88.4 %; Platelet Count 373 K/uL (130-400); RDW Coefficient of Variation 14.9 % (11.5-14.5); RDW Standard Deviation 40.1 fL (36.4-46.3); Red Blood Count 3.28 M/uL (4.2-5.4); White Blood Count 9.07 K/uL (4.8-10.8)
[2019-09-05 07:00] LABS: RBC Morphology Unremarkable
[2019-09-05 07:05] LABS: BUN Creatinine Ratio 12.2 (10-20); Calcium 8.4 mg/dl (8.5-10.1); Creatinine Clr Calc Pharmacy 127.7 ml/min; Est GFR (Non-African American) 123.4; Potassium 3.9 mmol/L (3.5-5.1)
[2019-09-05] MEDS: VANCOMYCIN HCL 1,000 MG in SODIUM CHLORIDE 0.9% 250 ML IV SCH ×2 (07:40→16:31)
[2019-09-05] MEDS: ENOXAPARIN INJ 40 MG/0.4 ML SYR SQ SCH (08:27)
[2019-09-05] MEDS: ALBUT/IPRATROP 3MG/0.5MG NEB 3 ML VIAL NEB SCH ×3 (11:10→19:08)
[2019-09-05] MEDS: AZITHROMYCIN 250 MG TAB PO SCH (11:38)
[2019-09-05] MEDS ORDERED: IRON SUCROSE 200 MG in 0.9 % SODIUM CHLORIDE 100 ML IV SCH (12:00)
--- NOTE | 2019-09-05 13:16 | Hospitalist Progress Note ---
Date of Service September 05, 2019 Assessment & Plan (1) Sepsis: Ms. Elkins is a 29-year-old female with a past medical history of anemia who presents to the emergency department due to left-sided chest pain, on a background of a cough for the last 1.5 months. ED course: 1 g IV acetaminophen, 4.5 g IV Zosyn, 500 mg p.o. azithromycin, 1250 mg IV vancomycin, 1 L normal saline bolus, 1 L normal saline at 125 mLs/hour, 3 mils DuoNeb, 50 mcg IV fentanyl citrate Sepsis secondary to multifocal pneumonia -Admit to Med/Surg with telemetry monitoring -Patient meets criteria for sepsis with tachycardia, tachypnea, with a pulmonary source of infection -CTA negative for PE, however shows bilateral lower lobe consolidation with multifocal pneumonia -Influenza swab negative -Blood cultures drawn x2 and pending -Continue Zosyn, vancomycin -MRSA swab negative -DuoNebs ordered every 4 hours scheduled -Continue IVF with NS at 125 mls/hr x 2 bags -Patient having left-sided chest pain, related to her pneumonia -> Tylenol and Toradol ordered as needed for pain Anemia -Patient reportedly had a history of anemia requiring transfusion in the past. This was felt to be secondary to ongoing, daily vaginal bleeding when she had her Mirena IUD - this has since resolved, as the patient is on an OCP and no longer has menses -Hemoglobin 8.4 on admission, this is a drop from 10.5 in 11/12 -MCV low at 73.3 -Patient denies any history of GI bleeding, or dark stools -Iron studies ordered with a.m. labs -Trend CBC, transfuse if hemoglobin drops below 7 Equivocal Lyme IgM -Patient has an equivocal test result for Lyme disease IgM antibody, and negative IgG -Western blot pending -Patient denies any signs or symptoms of Lyme disease CODE STATUS: Full DVT prophylaxis: 40 mg Lovenox SQ daily Disposition: Admit to med/surg with telemetry monitoring (2) Multifocal pneumonia: (3) Anemia: (4) Borderline results on serologic testing for Lyme disease: Supervising Physician Co-Signing Physician Notes I personally examined the patient and verified all salas points of history and exam, discussed case, and agree with decision making with Dr Amaral. was feeling better than before when i saw her, later some recurrence of her chest pain. breathing overall better. biggest complaint is oppressive fatigue. vitals noted nad nc at mmm lungs overall clear good air entry now, no accessory muscles good effort. skin no rashes no pallor or icterus. no focal neuro deficits. CAP w sepsis present on admission -appears overall to be improving. initially placed on broad abx due to sepsis and overall appearance of being rather ill - as she improves can start to de- escalate abx -continue supportive care anemia -no further vaginal bleeding or any other bleeding (gi or elsewhere) but also not on formal iron supplementation - suspect given how profound her anemia was when she needed transfused, i also suspect she was quite iron deficient then -- ferritin still pending with current levels (but iron low, TIBC upper end) and if ferritin anything but markedly elevated in the face of current infection (when one would expect it to be quite up as a phase reactant) then suspect that she's still just not adequate enough with iron stores to make enough RBC to totally correct anemia - supplement more aggressively and follow. no s/s ongoing blood loss currently, fortunately. Subjective Pt does not have any continued chest pain at this time; noticed some good improvement when she was on the nebulizer last night, that was not maintained. Still feels like she just can't take a deep breath. Review of Systems Constitutional: no fever, no chills and no sweats Respiratory: no cough, no dyspnea and no wheezing Cardiovascular: no chest pain, no palpitations and no edema Gastrointestinal: no nausea, no vomiting and no change in bowel habits Physical Exam Constitutional: well developed, well nourished and + ill appearing Eyes: PERRL, conjunctivae normal, anicteric sclerae Respiratory: + labored breathing Auscultation: + diminished lung sounds (Left lower lobe), + crackles and + wheezes Cardiovascular: RRR, no murmur, no edema Results & Data Vital Signs (Past 12 Hours) Vital Signs Temp Pulse Pulse Resp BP BP Pulse Ox 09/05/19 11:47 36.9 C 110 H 22 131/83 100 09/05/19 11:11 101 H 18 98 09/05/19 07:24 102 H 09/05/19 03:58 36.7 C 110 H 20 114/72 98 09/05/19 02:51 108 H 09/05/19 02:03 36.8 C 112 H 25 H 99/59 L 98 09/05/19 01:15 116 H 23 116/72 99 Laboratory Results 09/05/19 09/05/19 09/05/19 Range/Units 06:45 06:04 06:04 WBC 9.07 (4.8-10.8) K/uL RBC 3.28 L (4.2-5.4) M/uL Hgb 7.2 L (12.0-16.0) g/dL Hct 24.2 L (37-47) % MCV 73.8 L (80-100) fL MCH 22.0 L (25-34) pg MCHC 29.8 L (32-36) g/dL RDW Std Deviation 40.1 (36.4-46.3) fL RDW Coeff of Rachele 14.9 H (11.5-14.5) % Plt Count 373 (130-400) K/uL MPV 9.1 (7.4-10.4) fL Immature Gran % (Auto) 0.3 % Neut % (Auto) 88.4 % Lymph % (Auto) 5.8 % Reeves % (Auto) 5.4 % Eos % (Auto) 0.0 % Baso % (Auto) 0.1 % Immature Gran # (Auto) 0.03 H (0.00-0.02) K/uL Neut # (Auto) 8.01 H (1.4-6.5) K/uL Lymph # (Auto) 0.53 L (1.2-3.4) K/uL Reeves # (Auto) 0.49 (0.11-0.59) K/uL Eos # (Auto) 0.00 (0-0.5) K/uL Baso # (Auto) 0.01 (0-0.2) K/uL RBC Morphology Unremarkable Hypochromasia D-Dimer (0-500) ug/L FEU Sodium 139 (136-145) mmol/L Potassium 3.9 (3.5-5.1) mmol/L Chloride 107 (98-107) mmol/L Carbon Dioxide 26 (21-32) mmol/L Anion Gap 6.0 (3-11) BUN 7 D (7-18) mg/dl Creatinine 0.61 (0.6-1.2) mg/dl Est Cr Clr Drug Dosing 127.7 Est GFR ( Amer) 143.0 Est GFR (Non-Af Amer) 123.4 BUN/Creatinine Ratio 12.2 (10-20) Glucose 95 (70-99) mg/dl Calcium 8.4 L (8.5-10.1) mg/dl Magnesium (1.8-2.4) mg/dl Iron 20 L (35-150) mcg/dl TIBC 409 (250-450) mcg/dl Transferrin 334 (200-360) mg/dl Total Bilirubin (0.2-1) mg/dl AST (15-37) U/L ALT (12-78) U/L Alkaline Phosphatase (45-117) U/L Troponin I (0-0.045) ng/ml NT-Pro-B Natriuret Pep (0-450) pg/ml Total Protein (6.4-8.2) gm/dl Albumin (3.4-5.0) gm/dl Globulin (2.5-4.0) gm/dl Albumin/Globulin Ratio (0.9-2) Lipase (73-393) U/L HCG, Qual (Negative) Nasal Screen MRSA (PCR) Negative (Negative) Lyme Disease IgG Ab (Negative) Lyme IgG (Western Blot) Lyme IgG 18 kDa Band Lyme IgG 23 kDa Band Lyme IgG 28 kDa Band Lyme IgG 30 kDa Band Lyme IgG 39 kDa Band Lyme IgG 41 kDa Band Lyme IgG 45 kDa Band Lyme IgG 58 kDa Band Lyme IgG 66 kDa Band Lyme IgG 93 kDa Band Lyme Disease IgM Ab (Negative) Lyme IgM (Western Blot) Lyme IgM 23 kDa Band Lyme IgM 39 kDa Band Lyme IgM 41 kDa Band Influenza Type A (PCR) (Neg) Influenza Type B (PCR) (Neg) 09/04/19 09/04/19 09/04/19 Range/Units 23:50 21:23 21:23 WBC (4.8-10.8) K/uL RBC (4.2-5.4) M/uL Hgb (12.0-16.0) g/dL Hct (37-47) % MCV (80-100) fL MCH (25-34) pg MCHC (32-36) g/dL RDW Std Deviation (36.4-46.3) fL RDW Coeff of Rachele (11.5-14.5) % Plt Count (130-400) K/uL MPV (7.4-10.4) fL Immature Gran % (Auto) % Neut % (Auto) % Lymph % (Auto) % Reeves % (Auto) % Eos % (Auto) % Baso % (Auto) % Immature Gran # (Auto) (0.00-0.02) K/uL Neut # (Auto) (1.4-6.5) K/uL Lymph # (Auto) (1.2-3.4) K/uL Reeves # (Auto) (0.11-0.59) K/uL Eos # (Auto) (0-0.5) K/uL Baso # (Auto) (0-0.2) K/uL RBC Morphology Hypochromasia D-Dimer (0-500) ug/L FEU Sodium (136-145) mmol/L Potassium (3.5-5.1) mmol/L Chloride (98-107) mmol/L Carbon Dioxide (21-32) mmol/L Anion Gap (3-11) BUN (7-18) mg/dl Creatinine (0.6-1.2) mg/dl Est Cr Clr Drug Dosing Est GFR ( Amer) Est GFR (Non-Af Amer) BUN/Creatinine Ratio (10-20) Glucose (70-99) mg/dl Calcium (8.5-10.1) mg/dl Magnesium (1.8-2.4) mg/dl Iron (35-150) mcg/dl TIBC (250-450) mcg/dl Transferrin (200-360) mg/dl Total Bilirubin (0.2-1) mg/dl AST (15-37) U/L ALT (12-78) U/L Alkaline Phosphatase (45-117) U/L Troponin I (0-0.045) ng/ml NT-Pro-B Natriuret Pep (0-450) pg/ml Total Protein (6.4-8.2) gm/dl Albumin (3.4-5.0) gm/dl Globulin (2.5-4.0) gm/dl Albumin/Globulin Ratio (0.9-2) Lipase (73-393) U/L HCG, Qual Negative (Negative) Nasal Screen MRSA (PCR) (Negative) Lyme Disease IgG Ab Negative (Negative) Lyme IgG (Western Blot) Pending Lyme IgG 18 kDa Band Pending Lyme IgG 23 kDa Band Pending Lyme IgG 28 kDa Band Pending Lyme IgG 30 kDa Band Pending Lyme IgG 39 kDa Band Pending Lyme IgG 41 kDa Band Pending Lyme IgG 45 kDa Band Pending Lyme IgG 58 kDa Band Pending Lyme IgG 66 kDa Band Pending Lyme IgG 93 kDa Band Pending Lyme Disease IgM Ab Equivocal A (Negative) Lyme IgM (Western Blot) Pending Lyme IgM 23 kDa Band Pending Lyme IgM 39 kDa Band Pending Lyme IgM 41 kDa Band Pending Influenza Type A (PCR) Neg for Influ A (Neg) Influenza Type B (PCR) Neg for Influ B (Neg) 09/04/19 09/04/19 09/04/19 Range/Units 21:23 21:23 21:23 WBC 11.43 H (4.8-10.8) K/uL RBC 3.82 L (4.2-5.4) M/uL Hgb 8.4 L (12.0-16.0) g/dL Hct 28.0 L (37-47) % MCV 73.3 L (80-100) fL MCH 22.0 L (25-34) pg MCHC 30.0 L (32-36) g/dL RDW Std Deviation 40.0 (36.4-46.3) fL RDW Coeff of Rachele 14.9 H (11.5-14.5) % Plt Count 468 H (130-400) K/uL MPV 9.3 (7.4-10.4) fL Immature Gran % (Auto) 0.3 % Neut % (Auto) 83.0 % Lymph % (Auto) 10.4 % Reeves % (Auto) 5.3 % Eos % (Auto) 0.8 % Baso % (Auto) 0.2 % Immature Gran # (Auto) 0.04 H (0.00-0.02) K/uL Neut # (Auto) 9.48 H (1.4-6.5) K/uL Lymph # (Auto) 1.19 L (1.2-3.4) K/uL Reeves # (Auto) 0.61 H (0.11-0.59) K/uL Eos # (Auto) 0.09 (0-0.5) K/uL Baso # (Auto) 0.02 (0-0.2) K/uL RBC Morphology Hypochromasia Present D-Dimer 2230 H* (0-500) ug/L FEU Sodium 136 (136-145) mmol/L Potassium 3.9 (3.5-5.1) mmol/L Chloride 103 (98-107) mmol/L Carbon Dioxide 25 (21-32) mmol/L Anion Gap 9.0 (3-11) BUN 13 (7-18) mg/dl Creatinine 0.64 (0.6-1.2) mg/dl Est Cr Clr Drug Dosing Not Reportable Est GFR ( Amer) 140.7 Est GFR (Non-Af Amer) 121.4 BUN/Creatinine Ratio 20.5 H (10-20) Glucose 104 H (70-99) mg/dl Calcium 8.9 (8.5-10.1) mg/dl Magnesium 1.8 (1.8-2.4) mg/dl Iron (35-150) mcg/dl TIBC (250-450) mcg/dl Transferrin (200-360) mg/dl Total Bilirubin 0.2 (0.2-1) mg/dl AST 9 L (15-37) U/L ALT 13 (12-78) U/L Alkaline Phosphatase 56 (45-117) U/L Troponin I < 0.015 (0-0.045) ng/ml NT-Pro-B Natriuret Pep 47 (0-450) pg/ml Total Protein 7.8 (6.4-8.2) gm/dl Albumin 2.8 L (3.4-5.0) gm/dl Globulin 5.0 H (2.5-4.0) gm/dl Albumin/Globulin Ratio 0.6 L (0.9-2) Lipase 125 (73-393) U/L HCG, Qual (Negative) Nasal Screen MRSA (PCR) (Negative) Lyme Disease IgG Ab (Negative) Lyme IgG (Western Blot) Lyme IgG 18 kDa Band Lyme IgG 23 kDa Band Lyme IgG 28 kDa Band Lyme IgG 30 kDa Band Lyme IgG 39 kDa Band Lyme IgG 41 kDa Band Lyme IgG 45 kDa Band Lyme IgG 58 kDa Band Lyme IgG 66 kDa Band Lyme IgG 93 kDa Band Lyme Disease IgM Ab (Negative) Lyme IgM (Western Blot) Lyme IgM 23 kDa Band Lyme IgM 39 kDa Band Lyme IgM 41 kDa Band Influenza Type A (PCR) (Neg) Influenza Type B (PCR) (Neg) Medications Administered Current Inpatient Medications Acetaminophen (Tylenol) 650 mg PO Q4H PRN PRN Reason: pain/fever Stop: 10/05/19 01:32 Last Admin: 09/05/19 11:37 Dose: 650 mg Documented by: Albuterol (Duoneb) 3 ml NEB Q4R PRN PRN Reason: SOB or wheeze Stop: 10/05/19 01:32 Albuterol (Duoneb) 3 ml NEB Q4R [place] Stop: 10/05/19 10:59 Last Admin: 09/05/19 11:10 Dose: 3 ml Documented by: Azithromycin (Zithromax) 250 mg PO QAM [place] Stop: 09/12/19 11:59 Last Admin: 09/05/19 11:38 Dose: 250 mg Documented by: Enoxaparin Sodium (Lovenox) 40 mg SQ Q24H [place] Stop: 10/05/19 08:59 Last Admin: 09/05/19 08:27 Dose: Not Given Documented by: Sodium Chloride (Nss 1000ml) 1,000 mls @ 125 mls/hr IV .Q8H [place] Stop: 09/05/19 15:29 Last Admin: 09/05/19 08:34 Dose: 125 mls/hr Documented by: Vancomycin HCl 1,000 mg/ (Sodium Chloride) 270 mls @ 125 mls/hr IV Q8H [place] Stop: 09/12/19 07:59 Last Infusion: 09/05/19 10:14 Dose: Infused Documented by: Piperacillin Sod/Tazobactam (Sod 3.375 gm/ Dextrose) 115 mls @ 28.75 mls/hr IV Q8H [facility]; Protocol Stop: 09/12/19 05:59 Last Infusion: 09/05/19 10:14 Dose: Infused Documented by: Iron Sucrose 200 mg/ Sodium (Chloride) 110 mls @ 220 mls/hr IV TODAY@1200 [place] Stop: 09/05/19 16:00 Last Admin: 09/05/19 11:38 Dose: 220 mls/hr Documented by: Ioversol (Optiray 320 125ml) 103 ml IV ONCE PRN PRN Reason: Interaction Checking Stop: 09/08/19 22:45 Last Admin: 09/04/19 22:46 Dose: 103 ml Documented by: Ketorolac Tromethamine (Toradol) 15 mg IV Q6H PRN PRN Reason: Pain Stop: 09/10/19 01:32 Last Admin: 09/05/19 02:18 Dose: 15 mg Documented by: Miscellaneous (Order Awaiting Action) 1 ea N/A QS [place] Stop: 10/05/19 07:59 Last Admin: 09/05/19 07:42 Dose: Not Given Documented by: Miscellaneous Information (Consult) 1 ea N/A UD PRN PRN Reason: Consult Stop: 10/04/19 23:19 Miscellaneous Information (Consult) 1 ea N/A UD PRN PRN Reason: Consult Stop: 10/04/19 23:19 Resident Activity Tracking Resident Involvement: Resident Care Provided Care Provided: Adult Hospital Medicine
[2019-09-05] MEDS ORDERED: KETOROLAC TROMETHAMINE 15 MG/ML VIAL IV ONE (15:57)
--- NOTE | 2019-09-05 17:31 | Billing Data ---
Coding Level of Care Code 96445 Subseq Hosp Care Lvl 3
[2019-09-05] MEDS ORDERED: METOPROLOL TARTRATE 1 MG/ML VIAL IV PRN ×2 (18:40→20:11)
[2019-09-06] MEDS: VANCOMYCIN HCL 1,000 MG in SODIUM CHLORIDE 0.9% 250 ML IV SCH (00:02)
[2019-09-06] MEDS: SODIUM CHLORIDE 0.9% 1000ML 1,000 ML IV SCH ×2 (00:03→07:51)
[2019-09-06] MEDS: PIPERACILLIN/TAZOBACTAM 3.375 GM in DEXTROSE 5% 100 ML IV SCH (05:11)
[2019-09-06 06:25] LABS: Appearance Urine Clear (Clear); Bilirubin Urine Negative (Negative); Blood Urine Negative (Negative); Color Urine Yellow; Glucose Urine UA Negative (Negative); Ketones Urine Negative (Negative); Leukocyte Esterase Urine Negative (Negative); Nitrite Urine Negative (Negative); Protein Urine Negative (Negative); Specific Gravity Urine 1.012 (1.000-1.030); Urobilinogen Urine Negative (Negative); pH Urine 6.5 (4.5-7.5)
[2019-09-06] MEDS ORDERED: METOPROLOL TARTRATE 1 MG/ML VIAL IV PRN (06:30)
[2019-09-06 07:05] LABS: Hematocrit (blood only) 23.8 % (37-47); Hemoglobin 7.1 g/dL (12.0-16.0); Mean Corpuscular Hemoglobin 22.3 pg (25-34); Mean Corpuscular Hgb Conc 29.8 g/dL (32-36); Mean Corpuscular Volume 74.6 fL (80-100); Mean Platelet Volume 8.9 fL (7.4-10.4); Platelet Count 332 K/uL (130-400); RDW Coefficient of Variation 14.9 % (11.5-14.5); Red Blood Count 3.19 M/uL (4.2-5.4); White Blood Count 3.57 K/uL (4.8-10.8)
[2019-09-06 07:21] LABS: Basophils # (auto) 0.02 K/uL (0-0.2); Basophils % (auto) 0.6 %; Eosinophils # (auto) 0.07 K/uL (0-0.5); Immature Granulocytes # (auto) 0.04 K/uL (0.00-0.02); Immature Granulocytes % (auto) 1.1 %; Lymphocytes # (auto) 1.04 K/uL (1.2-3.4); Lymphocytes % (auto) 29.1 %; Monocytes # (auto) 0.48 K/uL (0.11-0.59); Monocytes % (auto) 13.4 %; Neutrophils # (auto) 1.92 K/uL (1.4-6.5); Neutrophils % (auto) 53.8 %; RBC Morphology Unremarkable
[2019-09-06] MEDS: ALBUT/IPRATROP 3MG/0.5MG NEB 3 ML VIAL NEB SCH (07:30)
[2019-09-06 07:32] LABS: BUN Creatinine Ratio 7.4 (10-20); Calcium 8.3 mg/dl (8.5-10.1); Est GFR (African American) 147.1; Est GFR (Non-African American) 126.9; Potassium 3.9 mmol/L (3.5-5.1)
[2019-09-06] MEDS: AZITHROMYCIN 250 MG TAB PO SCH (08:59)
[2019-09-06] MEDS ORDERED: IRON SUCROSE 200 MG in 0.9 % SODIUM CHLORIDE 100 ML IV SCH (09:00)
[2019-09-06] MEDS ORDERED: cefTRIAXone SODIUM 2,000 MG in DEXTROSE 5% 50 ML IV SCH (09:00)
[2019-09-06] MEDS: ENOXAPARIN INJ 40 MG/0.4 ML SYR SQ SCH (09:02)
--- NOTE | 2019-09-06 15:18 | Discharge Summary ---
Date of Service September 06, 2019 Admission HPI Per Admitting Provider Ms. Elkins is a 29-year-old female with a past medical history of anemia who presents to the emergency department due to left-sided chest pain, on a background of a cough for the last 1.5 months. She states that she has had an ongoing cough for the last month and a half, productive, without the presence of blood. She did have a fever approximately 1 week ago, with her maximum temperature being 100.5 F. She presented to urgent care for this, and received a prescription for Augmentin. She did not have a chest x-ray done at this time. She has had 4 days of the Augmentin, and presented to the emergency department due to the fact that she was not feeling better, and developed this new left- sided chest pain with coughing. She denies any shortness of breath. She reports feeling nauseous, but denies any vomiting or diarrhea. Her notes that she has been more fatigued than usual. 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 She has not traveled outside the [facility] in the last 6 months. With regards to her history of anemia, her hemoglobin was in the 45 range approximately 4 years ago, requiring the transfusion of 2 units of blood. This was attributed to her ongoing menses - she had the Mirena IUD, and had bleeding on a daily basis. She is currently an OCP, and does not have periods anymore. She used to be on iron supplementation, however is currently not taking any thing. Of note, she is a former smoker, however quit smoking 8 years ago. Principal Diagnosis Multifocal pneumonia Discharge Exam Constitutional well developed, well nourished and + ill appearing Eyes PERRL, conjunctivae normal, anicteric sclerae Respiratory no labored breathing Auscultation: + diminished lung sounds (improving: Left lower lobe) and + wheezes (improving); no crackles Cardiovascular RRR, no murmur, no edema Discharge Data Allergies Allergy/AdvReac Type Severity Reaction Status Date / Time No Known Allergies Allergy Unverified 09/04/19 21:55 Consultations 09/04/19 23:41 ED Decision to Admit Stat Ordered Studies 09/04/19 22:15 CT angio chest PE protocol Stat Hospital Course (1) Sepsis: Ms. Elkins is a 29-year-old female with a past medical history of anemia who presents to the emergency department due to left-sided chest pain, on a background of a cough for the last 1.5 months. Sepsis secondary to multifocal pneumonia -CTA negative for PE, however shows bilateral lower lobe consolidation with multifocal pneumonia -Influenza swab negative -continue azithromycin, and cefdinir -continue ventolin inhaler as needed for shortness of breath/wheeze Anemia -Hemoglobin 8.4 on admission, dropped to 7.1 -Received two boluses of IV iron -continue Ferrous gluconate; repeat checks in 3 months, unless patient is symptomatic (2) Multifocal pneumonia: (3) Anemia: (4) Borderline results on serologic testing for Lyme disease: Total Time Total Time Spent Total Time Spent (In Minutes): >30 Discharge Plan Discharge Items Patient Disposition: Home - Self-Care Reason For Visit: SEPSIS, MULTIFOCAL PNEUMONIA Discharge Diagnosis: Pneumonia Activity: Per Instructions section Non-emergency contact: Primary Care Provider Call non-emergency contact if: your symptoms worsen and you have a fever Follow-up/Referrals: Mirza Amaral MD [Primary Care Provider] - 09/15/19 1:50 pm (Please, follow up with Dr. Mirza Amaral on September 15 at 1:50 pm. *The office is located in [address] [facility], next to this hospital. If you need to change this appointment, call the office at [phone].) PCP,NO [Physician] - Diet: Regular Addtl Attending Provider Instructions: You came to the hospital after having continued worsening of your shortness of breath; during this admission you had imaging of your chest done that demonstrated pneumonia in your lungs. With the severity of symptoms that you had, we admitted you and started you on large antibiotics until we could solidify that your infection was not due to particularly difficult to treat bacteria. We were able to decrease these antibiotics as you continued to improve. Additionally, with your history of anemia, we gave you some intravenous iron replacement in order to continue to boost your normal red blood cell production. As you are going home, we are going to continue you on two antibiotics for the time being. The azithromycin you will continue to take for four days before stopping, and at the same time we have written for cefdinir that you will take twice a day for an additional ten days. After you complete these antibiotics you will continue to improve and feel better, but this process could take six weeks for you to completely feel better. Over this time, you will have an albuterol inhaler that you can use as you need every 4 hours for your shortness of breath. For your anemia, we are going to continue you on oral iron supplementation, and you will continue to take this until we are able to re-check levels in the coming months. It is important, that if you follow up with me in the coming weeks/months so we can further monitor your anemia. My clinic is on [address] [facility] [place] [facility] [address], [place] [address]. Phone number [phone]. Pending Studies at Discharge: No Stand-Alone Forms: My [facility], Smoking Cessation Medications and DC Order Prescriptions: New ferrous gluconate 256 mg (28 mg iron) tablet 256 mg PO TID 30 Days Qty: 90 RF: 0 albuterol sulfate [Ventolin HFA] 90 mcg/actuation HFA aerosol inhaler 1 puffs INH Q6H PRN (Reason: shortness of breath or wheezing) Qty: 6.7 RF: 0 cefdinir 300 mg capsule 300 mg PO BID 10 Days Qty: 20 RF: 0 azithromycin 250 mg tablet 250 mg PO DAILY 4 Days Qty: 4 RF: 0 Continued desogestrel-ethinyl estradiol [Enskyce] 0.15-0.03 mg tablet 1 tab PO DAILY RF: 0 benzonatate [Tessalon Perles] 100 mg Capsule 100 - 200 mg PO TID PRN (Reason: Cough) RF: 0 docusate sodium [Stool Softener] 100 mg Capsule 0 mg PO DAILY RF: 0 Discontinued amoxicillin-pot clavulanate [Augmentin] 875-125 mg tablet 1 tab PO Q12 RF: 0 Discharge Orders: Discharge Order (Routine); Ordered 09/06/19 Ordered By: Mirza Amaral Admission Data Admit Date/Time: 09/05/19 00:21 Attending Provider: Asif Morgan Admit Provider: Schuyler Man Primary Care Provider: Mirza Amaral Other Providers: Ayan Roach Other Interventions: Discharge Summary Assessment (RN) Last Done: 09/06/19 15:15 DC Date/Time DO NOT enter until pt leaves facility: 09/06/19 16:10 Supervising Physician Co-Signing Physician Notes I personally examined the patient and verified all salas points of history and exam, discussed case, and agree with decision making with Dr Amaral. was feeling better than before when i saw her, later some recurrence of her chest pain. breathing overall better. biggest complaint is oppressive fatigue. vitals noted nad nc at mmm lungs overall clear good air entry now, no accessory muscles good effort. skin no rashes no pallor or icterus. no focal neuro deficits. CAP w sepsis present on admission -improving nicely - stable for home. finish out course of antibiotics as above, PCP f/u. anemia -no further vaginal bleeding or any other bleeding (gi or elsewhere) but also not on formal iron supplementation - suspect given how profound her anemia was when she needed transfused, i also suspect she was quite iron deficient then -- quite low ferritin (when it should be elevated as a phase reactant) corroborates this. gave IV iron x 2 doses here; continue w PO ferrous gluconate, repeat iron levels ~3 months. CBC in nearer future as outpt. Resident Activity Tracking Resident Involvement: Resident Care Provided Care Provided: Adult Hospital Medicine
--- NOTE | 2019-09-07 06:54 | Emergency Department Note ---
Entered by Gena Fontenot acting as a scribe for Alberta Wagner DO History of Present Illness General Chief complaint: Shortness of Breath/Dyspnea Stated complaint: SOB,LEFT SIDE CHEST PAIN Time Seen by Provider: 09/04/19 21:32 Source: patient and family () History of Present Illness Onset (ago): hour(s) (today) Location: chest Maximum Pain Intensity: 5 Quality: + constant Exacerbated By: + movement (laying down and sitting up, better with sitting up but still painful) and + other (cough) Associated symptoms: + cough (x1 month) and + other (nausea) The patient is a 29 year old female with a PMHx pertinent for anemia and no additional medical problems [facility] who presents to the Emergency Room with complaints of chest pain. The patient states that she has an ongoing cough for 1 month. She explains that she began to feel chest pain following coughing 6 days ago. The patient's reports that she was seen by Urgent Care and was given antibiotics (Augmentin 1x/day) after being told she had a "viral infection that then turned into a bacterial infection". She states she has been on the Augmentin for about 3.5 days. The explains that Urgent Care did not send her for any imaging due to lack of medical insurance. The patient states that she started to feel more localized chest pain this week which has worsened. She reports taking Ibuprofen and Tylenol for pain. The explains that she felt better today but then felt the worst chest pain all week after movement while playing with her child. She describes her pain to be worse with any movement and also when laying down or sitting up. Though, she does note that sitting up feels slightly better than laying down. Additionally she reports that she was feeling nauseous but it has now resolved. The patient and offer no additional concerns at this time. Home Medications Home Medications Medication Instructions Recorded Confirmed Type benzonatate [Tessalon Perles] 100 - 200 mg PO TID PRN 09/04/19 09/04/19 History desogestrel-ethinyl estradiol 1 tab PO DAILY 09/04/19 09/04/19 History [Enskyce] docusate sodium [Stool Softener] 0 mg PO DAILY 09/04/19 09/04/19 History albuterol sulfate [Ventolin HFA] 1 puffs INH Q6H PRN #6.7 gm 09/06/19 Rx azithromycin 250 mg PO DAILY 4 Days #4 tab 09/06/19 Rx cefdinir 300 mg PO BID 10 Days #20 cap 09/06/19 Rx ferrous gluconate 256 mg PO TID 30 Days #90 tab 09/06/19 Rx Allergies Allergy/AdvReac Type Severity Reaction Status Date / Time No Known Allergies Allergy Unverified 09/04/19 21:55 Past Med/Surg History Medical History Anemia Social History Preferred Language: Panamanian Beliefs That Will Affect Care: None Current Living Situation: Spouse and Family Feels Safe at Home: Yes Smoking Status: Former smoker Second Hand Exposure: No ; Hx Alcohol Use: No Hx Substance Use: No Review of Systems See HPI for pertinent positives & negatives. and A total of 10 systems reviewed and were otherwise negative Physical Exam Vital Signs Vital Signs - 24 hr 09/04/19 20:54 09/04/19 21:10 09/04/19 21:20 Temperature 36.9 C Temperature Source Oral Sepsis Recent Fever Within 48 Hours No Sepsis Action Taken by Nursing No Action Required Pulse Rate 131 H 77 57 L Pulse Rate [Finger] 99 H Pulse Rate from SpO2 Sensor 76 56 L Respiratory Rate 18 35 H 23 Respiratory Effort / Characteristics Non-Labored Non-Labored Spontaneous Respiratory Depth Normal Shallow Respiratory Pattern Regular Blood Pressure 139/78 116/73 Blood Pressure [Right Arm] 116/73 Blood Pressure Mean 98 87 Blood Pressure Mean [Right Arm] 87 Pulse Oximetry 100 100 100 Oxygen Delivery Method Room Air Room Air Room Air Oxygen Flow Rate 09/04/19 21:23 09/04/19 21:30 09/04/19 21:31 Temperature Temperature Source Sepsis Recent Fever Within 48 Hours Sepsis Action Taken by Nursing Pulse Rate 63 101 H 98 H Pulse Rate [Finger] Pulse Rate from SpO2 Sensor 63 99 H 100 H Respiratory Rate 28 H 38 H 25 H Respiratory Effort / Characteristics Respiratory Depth Respiratory Pattern Blood Pressure 76/37 L 111/69 Blood Pressure [Right Arm] Blood Pressure Mean 50 83 Blood Pressure Mean [Right Arm] Pulse Oximetry 98 99 97 Oxygen Delivery Method Room Air Room Air Nasal Cannula Oxygen Flow Rate 2 09/04/19 21:40 09/04/19 21:45 09/04/19 21:50 Temperature Temperature Source Sepsis Recent Fever Within 48 Hours Sepsis Action Taken by Nursing Pulse Rate 99 H 97 H 105 H Pulse Rate [Finger] Pulse Rate from SpO2 Sensor 98 H 98 H 106 H Respiratory Rate 28 H 26 H 30 H Respiratory Effort / Characteristics Respiratory Depth Respiratory Pattern Blood Pressure 105/67 Blood Pressure [Right Arm] Blood Pressure Mean 79 Blood Pressure Mean [Right Arm] Pulse Oximetry 100 100 100 Oxygen Delivery Method Nasal Cannula Nasal Cannula Nasal Cannula Oxygen Flow Rate 2 2 2 09/04/19 22:00 09/04/19 22:01 09/04/19 22:10 Temperature Temperature Source Sepsis Recent Fever Within 48 Hours Sepsis Action Taken by Nursing Pulse Rate 103 H 103 H 102 H Pulse Rate [Finger] Pulse Rate from SpO2 Sensor 102 H 103 H 103 H Respiratory Rate 28 H 28 H 26 H Respiratory Effort / Characteristics Respiratory Depth Respiratory Pattern Blood Pressure 101/61 Blood Pressure [Right Arm] Blood Pressure Mean 74 Blood Pressure Mean [Right Arm] Pulse Oximetry 100 100 100 Oxygen Delivery Method Nasal Cannula Nasal Cannula Nasal Cannula Oxygen Flow Rate 2 2 2 09/04/19 22:15 09/04/19 22:20 09/04/19 22:30 Temperature Temperature Source Sepsis Recent Fever Within 48 Hours Sepsis Action Taken by Nursing Pulse Rate 102 H 105 H 106 H Pulse Rate [Finger] Pulse Rate from SpO2 Sensor 103 H 107 H 109 H Respiratory Rate 27 H 27 H 31 H Respiratory Effort / Characteristics Respiratory Depth Respiratory Pattern Blood Pressure 106/63 Blood Pressure [Right Arm] Blood Pressure Mean 77 Blood Pressure Mean [Right Arm] Pulse Oximetry 100 100 100 Oxygen Delivery Method Nasal Cannula Nasal Cannula Nasal Cannula Oxygen Flow Rate 2 2 2 09/04/19 22:32 09/04/19 22:48 09/04/19 22:49 Temperature Temperature Source Sepsis Recent Fever Within 48 Hours Sepsis Action Taken by Nursing Pulse Rate 105 H 117 H Pulse Rate [Finger] Pulse Rate from SpO2 Sensor 104 H 119 H 116 H Respiratory Rate 26 H 37 H Respiratory Effort / Characteristics Respiratory Depth Respiratory Pattern Blood Pressure 125/74 110/75 Blood Pressure [Right Arm] Blood Pressure Mean 91 86 Blood Pressure Mean [Right Arm] Pulse Oximetry 100 97 96 Oxygen Delivery Method Nasal Cannula Nasal Cannula Nasal Cannula Oxygen Flow Rate 2 2 2 09/04/19 22:50 09/04/19 23:00 09/04/19 23:01 Temperature Temperature Source Sepsis Recent Fever Within 48 Hours Sepsis Action Taken by Nursing Pulse Rate 114 H 117 H 117 H Pulse Rate [Finger] Pulse Rate from SpO2 Sensor 114 H 117 H 117 H Respiratory Rate 31 H 29 H 34 H Respiratory Effort / Characteristics Respiratory Depth Respiratory Pattern Blood Pressure 124/72 Blood Pressure [Right Arm] Blood Pressure Mean 89 Blood Pressure Mean [Right Arm] Pulse Oximetry 97 99 98 Oxygen Delivery Method Nasal Cannula Nasal Cannula Nasal Cannula Oxygen Flow Rate 2 2 2 GENERAL: alert, ill appearing, pale, well nourished, no distress, non-toxic EYE EXAM: normal conjunctiva, PERRL and EOM's grossly intact OROPHARYNX: no exudate, no erythema, lips, buccal mucosa, and tongue normal and mucous membranes are moist NECK: supple, no nuchal rigidity, no adenopathy, non-tender LUNGS: Clear to auscultation. Normal chest wall mechanics. No wheezes, rhonchi, or rales. HEART: no murmurs, S1 normal and S2 normal, tachycardic in the oneteen's ABDOMEN: abdomen soft, non-tender, normo-active bowel sounds, no masses, no rebound or guarding. BACK: Back is symmetrical on inspection and there is no deformity, no midline tenderness, no CVA tenderness. SKIN: no rashes and no bruising UPPER EXTREMITIES: upper extremities are grossly normal. FROM, nml pulses b/l. LOWER EXTREMITIES: No pitting edema. FROM, nml pulses b/l. NEURO EXAM: Normal sensorium, cranial nerves II-XII grossly intact, normal speech, no gross weakness of arms, no gross weakness of legs. Gross sensation intact. Course 2121: Past medical records reviewed. The patient was evaluated in room A04B. A complete history and physical exam was performed. I was called to the room urgently by nursing staff after patient appeared to have a near syncopal event where her blood pressure dropped to 70/40 and heart rate dropped to 50. 22:01: Patient updated on results and chest x-ray. Given elevated d-dimer, likely related to infection, I am concerned given atypical presentation in an otherwise young healthy female as well as the near syncopal episode and persi stent tachycardia. I did discuss with her pursuing CT angiography of the chest and they were in agreement. 2314: I updated the patient on her test results and plan to admit. I Spoke to Dr. Roach, [facility] Hospitalist who accepts patient for admission. The patient verbally expressed understanding and agreement of the treatment plan. The patient will be evaluated for further treatment. Administered Medications Discontinued Medications Acetaminophen (Tylenol) 650 mg PO Q4H PRN PRN Reason: pain/fever Stop: 10/05/19 01:32 Last Admin: 09/05/19 11:37 Dose: 650 mg Documented by: [id number] Albuterol (Duoneb) 3 ml NEB NOW STA Stop: 09/04/19 23:24 Last Admin: 09/05/19 00:02 Dose: 3 ml Documented by: [id number] Albuterol (Duoneb) 3 ml NEB Q4R PRN PRN Reason: SOB or wheeze Stop: 10/05/19 01:32 Last Admin: 09/05/19 23:06 Dose: 3 ml Documented by: [id number] Albuterol (Duoneb) 3 ml NEB Q4R BECKA Stop: 10/05/19 10:59 Last Admin: 09/06/19 07:30 Dose: Not Given Documented by: [id number] Admin: 09/05/19 19:08 Dose: 3 ml Documented by: [id number] Admin: 09/05/19 15:05 Dose: 3 ml Documented by: [id number] Admin: 09/05/19 11:10 Dose: 3 ml Documented by: [id number] Azithromycin (Zithromax) 500 mg PO NOW ONE Stop: 09/04/19 23:21 Last Admin: 09/05/19 00:44 Dose: 500 mg Documented by: [id number] Azithromycin (Zithromax) 250 mg PO QAM BECKA Stop: 09/12/19 11:59 Last Admin: 09/06/19 08:59 Dose: 250 mg Documented by: [id number] Admin: 09/05/19 11:38 Dose: 250 mg Documented by: [id number] Enoxaparin Sodium (Lovenox) 40 mg SQ Q24H BECKA Stop: 10/05/19 08:59 Last Admin: 09/06/19 09:02 Dose: 40 mg Documented by: [id number] Admin: 09/05/19 08:27 Dose: Not Given Documented by: [id number] Fentanyl Citrate (Fentanyl Citrate) 50 mcg IV Q15M PRN PRN Reason: Pain Stop: 09/18/19 22:39 Last Admin: 09/04/19 23:02 Dose: 50 mcg Documented by: [id number] Sodium Chloride (Nss 1000ml) 1,000 mls @ 999 mls/hr IV .Q1H1M ONE Stop: 09/04/19 22:51 Last Infusion: 09/04/19 23:03 Dose: 0 mls/hr Documented by: [id number] Admin: 09/04/19 21:53 Dose: 999 mls/hr Documented by: [id number] Vancomycin HCl 1,250 mg/ (Sodium Chloride) 525 mls @ 200 mls/hr IV NOW ONE Stop: 09/05/19 01:57 Last Infusion: 09/05/19 04:27 Dose: 0 mls/hr Documented by: [id number] Admin: 09/05/19 00:54 Dose: 200 mls/hr Documented by: [id number] Piperacillin Sod/Tazobactam Sod (Zosyn) 4.5 gm in 120 mls @ 240 mls/hr IV NOW ONE Stop: 09/04/19 23:49 Last Infusion: 09/05/19 01:21 Dose: 0 mls/hr Documented by: [id number] Admin: 09/05/19 00:42 Dose: 240 mls/hr Documented by: [id number] Acetaminophen (Ofirmev) 1,000 mg in 100 mls @ 400 mls/hr IV NOW STA Stop: 09/04/19 23:37 Last Infusion: 09/05/19 00:57 Dose: 0 mls/hr Documented by: [id number] Admin: 09/05/19 00:42 Dose: 400 mls/hr Documented by: [id number] Sodium Chloride (Nss 1000ml) 1,000 mls @ 125 mls/hr IV .Q8H BECKA Stop: 09/05/19 15:29 Last Infusion: 09/05/19 16:34 Dose: 0 mls/hr Documented by: [id number] Admin: 09/05/19 08:34 Dose: 125 mls/hr Documented by: [id number] Infusion: 09/05/19 08:34 Dose: 125 mls/hr Documented by: [id number] Admin: 09/05/19 00:50 Dose: 125 mls/hr Documented by: [id number] Vancomycin HCl 1,000 mg/ (Sodium Chloride) 270 mls @ 125 mls/hr IV Q8H BECKA Stop: 09/12/19 07:59 Last Infusion: 09/06/19 02:15 Dose: 0 mls/hr Documented by: [id number] Admin: 09/06/19 00:02 Dose: 125 mls/hr Documented by: [id number] Infusion: 09/05/19 22:00 Dose: 0 mls/hr Documented by: [id number] Admin: 09/05/19 16:31 Dose: 125 mls/hr Documented by: [id number] Infusion: 09/05/19 10:14 Dose: 0 mls/hr Documented by: [id number] Admin: 09/05/19 07:40 Dose: 125 mls/hr Documented by: [id number] Piperacillin Sod/Tazobactam (Sod 3.375 gm/ Dextrose) 115 mls @ 28.75 mls/hr IV Q8H BECKA; Protocol Stop: 09/12/19 05:59 Last Infusion: 09/06/19 07:50 Dose: 0 mls/hr Documented by: [id number] Admin: 09/06/19 05:11 Dose: 28.8 mls/hr Documented by: [id number] Infusion: 09/06/19 02:15 Dose: 0 mls/hr Documented by: [id number] Admin: 09/05/19 22:03 Dose: 28.8 mls/hr Documented by: [id number] Infusion: 09/05/19 18:21 Dose: 0 mls/hr Documented by: [id number] Admin: 09/05/19 14:21 Dose: 28.8 mls/hr Documented by: [id number] Infusion: 09/05/19 10:14 Dose: 0 mls/hr Documented by: [id number] Admin: 09/05/19 06:02 Dose: 28.8 mls/hr Documented by: [id number] Iron Sucrose 200 mg/ Sodium (Chloride) 110 mls @ 220 mls/hr IV TODAY@1200 BECKA Stop: 09/05/19 16:00 Last Infusion: 09/05/19 13:27 Dose: 0 mls/hr Documented by: [id number] Admin: 09/05/19 11:38 Dose: 220 mls/hr Documented by: [id number] Sodium Chloride (Nss 1000ml) 1,000 mls @ 125 mls/hr IV .Q8H BECKA Stop: 10/05/19 16:14 Last Infusion: 09/06/19 15:44 Dose: 0 mls/hr Documented by: [id number] Admin: 09/06/19 07:51 Dose: 125 mls/hr Documented by: [id number] Infusion: 09/06/19 07:51 Dose: 125 mls/hr Documented by: [id number] Admin: 09/06/19 00:03 Dose: 125 mls/hr Documented by: [id number] Infusion: 09/06/19 00:03 Dose: 125 mls/hr Documented by: [id number] Admin: 09/05/19 16:29 Dose: 125 mls/hr Documented by: [id number] Ceftriaxone Sodium 2,000 mg/ (Dextrose) 70 mls @ 100 mls/hr IV DAILY BECKA; Protocol Stop: 09/13/19 08:59 Last Infusion: 09/06/19 10:48 Dose: 0 mls/hr Documented by: [id number] Admin: 09/06/19 09:39 Dose: 100 mls/hr Documented by: [id number] Iron Sucrose 200 mg/ Sodium (Chloride) 110 mls @ 220 mls/hr IV 0900 [facility] Stop: 09/06/19 11:00 Last Infusion: 09/06/19 09:40 Dose: 0 mls/hr Documented by: [id number] Admin: 09/06/19 08:59 Dose: 220 mls/hr Documented by: [id number] Ioversol (Optiray 320 125ml) 103 ml IV ONCE PRN PRN Reason: Interaction Checking Stop: 09/08/19 22:45 Last Admin: 09/04/19 22:46 Dose: 103 ml Documented by: [id number] Ketorolac Tromethamine (Toradol) 15 mg IV Q6H PRN PRN Reason: Pain Stop: 09/10/19 01:32 Last Admin: 09/05/19 02:18 Dose: 15 mg Documented by: [id number] Ketorolac Tromethamine (Toradol) 10 mg IV NOW ONE Stop: 09/05/19 15:58 Last Admin: 09/05/19 16:27 Dose: 10 mg Documented by: [id number] Metoprolol Tartrate (Lopressor) 5 mg IV Q2H PRN PRN Reason: Tachycardia Stop: 10/05/19 18:39 Last Admin: 09/05/19 19:45 Dose: 5 mg Documented by: [id number] Miscellaneous (Order Awaiting Action) 1 ea N/A QS BECKA Stop: 10/05/19 07:59 Last Admin: 09/06/19 15:45 Dose: Not Given Documented by: [id number] Admin: 09/06/19 07:51 Dose: Not Given Documented by: [id number] Admin: 09/06/19 00:02 Dose: Not Given Documented by: [id number] Admin: 09/05/19 16:28 Dose: Not Given Documented by: [id number] Admin: 09/05/19 07:42 Dose: Not Given Documented by: [id number] Miscellaneous Information (Consult) 1 ea N/A UD ONE Stop: 09/04/19 23:21 Last Admin: 09/05/19 07:04 Dose: Not Given Documented by: [id number] Medical Decision Making Differential Diagnosis Differential diagnosis includes but is not limited to etiologies such as cardiac ischemia, aortic dissection, pulmonary embolism, pneumonia, pneumothorax, musculoskeletal, infections, pericarditis, myocarditis, esophageal rupture, gastrointestinal, as well as others were entertained. Medical Records Attestation: I reviewed the patient's medical records. Home Medications Current Medication List: was personally reviewed by me Laboratory Data Attestation: I reviewed the patient's lab results. Result diagrams: 09/06/19 06:41 09/06/19 06:41 Lab Results 09/04/19 09/04/19 09/04/19 Range/Units 21:23 21:23 21:23 WBC 11.43 H (4.8-10.8) K/uL RBC 3.82 L (4.2-5.4) M/uL Hgb 8.4 L (12.0-16.0) g/dL Hct 28.0 L (37-47) % MCV 73.3 L (80-100) fL MCH 22.0 L (25-34) pg MCHC 30.0 L (32-36) g/dL RDW Std Deviation 40.0 (36.4-46.3) fL RDW Coeff of Rachele 14.9 H (11.5-14.5) % Plt Count 468 H (130-400) K/uL MPV 9.3 (7.4-10.4) fL Immature Gran % (Auto) 0.3 % Neut % (Auto) 83.0 % Lymph % (Auto) 10.4 % [place] % (Auto) 5.3 % Eos % (Auto) 0.8 % Baso % (Auto) 0.2 % Immature Gran # (Auto) 0.04 H (0.00-0.02) K/uL Neut # (Auto) 9.48 H (1.4-6.5) K/uL Lymph # (Auto) 1.19 L (1.2-3.4) K/uL [place] # (Auto) 0.61 H (0.11-0.59) K/uL Eos # (Auto) 0.09 (0-0.5) K/uL Baso # (Auto) 0.02 (0-0.2) K/uL Hypochromasia Present D-Dimer 2230 H* (0-500) ug/L FEU Sodium 136 (136-145) mmol/L Potassium 3.9 (3.5-5.1) mmol/L Chloride 103 (98-107) mmol/L Carbon Dioxide 25 (21-32) mmol/L Anion Gap 9.0 (3-11) BUN 13 (7-18) mg/dl Creatinine 0.64 (0.6-1.2) mg/dl Est Cr Clr Drug Dosing Not Reportable Est GFR ( Amer) 140.7 Est GFR (Non-Af Amer) 121.4 BUN/Creatinine Ratio 20.5 H (10-20) Glucose 104 H (70-99) mg/dl Calcium 8.9 (8.5-10.1) mg/dl Magnesium 1.8 (1.8-2.4) mg/dl Total Bilirubin 0.2 (0.2-1) mg/dl AST 9 L (15-37) U/L ALT 13 (12-78) U/L Alkaline Phosphatase 56 (45-117) U/L Troponin I < 0.015 (0-0.045) ng/ml NT-Pro-B Natriuret Pep 47 (0-450) pg/ml Total Protein 7.8 (6.4-8.2) gm/dl Albumin 2.8 L (3.4-5.0) gm/dl Globulin 5.0 H (2.5-4.0) gm/dl Albumin/Globulin Ratio 0.6 L (0.9-2) Lipase 125 (73-393) U/L HCG, Qual (Negative) Lyme Disease IgG Ab (Negative) Lyme Disease IgM Ab (Negative) Influenza Type A (PCR) (Neg) Influenza Type B (PCR) (Neg) 09/04/19 09/04/19 Range/Units 21:23 23:50 WBC (4.8-10.8) K/uL RBC (4.2-5.4) M/uL Hgb (12.0-16.0) g/dL Hct (37-47) % MCV (80-100) fL MCH (25-34) pg MCHC (32-36) g/dL RDW Std Deviation (36.4-46.3) fL RDW Coeff of Rachele (11.5-14.5) % Plt Count (130-400) K/uL MPV (7.4-10.4) fL Immature Gran % (Auto) % Neut % (Auto) % Lymph % (Auto) % [place] % (Auto) % Eos % (Auto) % Baso % (Auto) % Immature Gran # (Auto) (0.00-0.02) K/uL Neut # (Auto) (1.4-6.5) K/uL Lymph # (Auto) (1.2-3.4) K/uL [place] # (Auto) (0.11-0.59) K/uL Eos # (Auto) (0-0.5) K/uL Baso # (Auto) (0-0.2) K/uL Hypochromasia D-Dimer (0-500) ug/L FEU Sodium (136-145) mmol/L Potassium (3.5-5.1) mmol/L Chloride (98-107) mmol/L Carbon Dioxide (21-32) mmol/L Anion Gap (3-11) BUN (7-18) mg/dl Creatinine (0.6-1.2) mg/dl Est Cr Clr Drug Dosing Est GFR ( Amer) Est GFR (Non-Af Amer) BUN/Creatinine Ratio (10-20) Glucose (70-99) mg/dl Calcium (8.5-10.1) mg/dl Magnesium (1.8-2.4) mg/dl Total Bilirubin (0.2-1) mg/dl AST (15-37) U/L ALT (12-78) U/L Alkaline Phosphatase (45-117) U/L Troponin I (0-0.045) ng/ml NT-Pro-B Natriuret Pep (0-450) pg/ml Total Protein (6.4-8.2) gm/dl Albumin (3.4-5.0) gm/dl Globulin (2.5-4.0) gm/dl Albumin/Globulin Ratio (0.9-2) Lipase (73-393) U/L HCG, Qual Negative (Negative) Lyme Disease IgG Ab Negative (Negative) Lyme Disease IgM Ab Equivocal A (Negative) Influenza Type A (PCR) Neg for Influ A (Neg) Influenza Type B (PCR) Neg for Influ B (Neg) Imaging Data Radiologist's Impression: Radiology results as stated below per my review and the radiologist's interpretation: XR chest 1V portable CLINICAL HISTORY: 29 years-old Female presenting with chest pain. TECHNIQUE: Portable upright AP view of the chest was obtained. COMPARISON: 09/04/2019. FINDINGS: Cardiomediastinal silhouette normal. Obscuration of the left hemidiaphragm. The left heart border remains distinct. Left pleural effusion not excluded. No pneumothorax. Osseous structures normal. Upper abdomen normal. IMPRESSION: 1. Left lower lobe infiltrate potentially with a small left pleural effusion. This is most likely evidence of left lower lobe pneumonia with a possible parapneumonic effusion. PA and lateral views may better demonstrate this. This should be followed to resolution. Electronically signed by: Taco Boone M.D. 09/04/2019 10:[address] angio chest PE protocol CLINICAL HISTORY: 29 years-old Female presenting with atypical chest pain, cough for one week, shortness of breath, clinical concern for pulmonary embolus. TECHNIQUE: Multidetector CT angiography of the chest was performed after administration of intravenous contrast. 3-D volumetric and/or maximum intensity projection (MIP) images were subsequently reconstructed for review. IV contrast: 103 mL of Optiray 320. One or more dose lowering techniques were used consistent with the principles of ALARA (as low as reasonably achievable), including automatic exposure control, mA or kV adjustment to individual patient size, and/or use of iterative reconstruction. COMPARISON: Chest x-ray performed earlier today. CT DOSE (mGy.cm): The estimated cumulative dose is 245.14 mGy.cm. FINDINGS: Ui Ux Developer topogram: Unremarkable. Pulmonary vasculature: The study is suboptimal for the assessment of the pulmonary vascular tree secondary to respiratory motion artifact. No filling defect within the pulmonary arteries to suggest embolus. Main pulmonary artery is not enlarged. No flattening of the interventricular septum. No intracardiac filling defect. No reflux of contrast into the hepatic veins. Remaining chest: Soft tissues: Normal thyroid and thoracic inlet. Bilateral prominent hilar lymph nodes. Soft tissue in anterior mediastinum likely residual thymus. Normal aorta. Normal heart size. No pericardial or pleural effusion. Upper abdomen normal. Lungs and airways: No pneumothorax. Central airways patent. Pulmonary arteries are not significantly enlarged relative to adjacent bronchi. No interlobular septal thickening. Consolidation in the medial basal right lower lobe and more extensively in the basal segments of the left lower lobe. Solid 4 mm polygonal nodule in the right middle lobe, which has a benign morphology. Calcified granuloma in the right lower lobe. Musculoskeletal: Normal osseous structures. IMPRESSION: 1. No evidence of pulmonary embolus. 2. Bilateral lower lobe consolidation greater on the left system with multifocal pneumonia. 3. No parapneumonic effusion. Electronically signed by: Taco Boone M.D. 09/04/2019 10:54 PM ECG Data Attestation: I personally reviewed and interpreted this ECG as follows: Indication: + tachycardia Rate (beats per minute): 100 ECG [place]: + Normal ECG Findings: + Other (normal intervals, no ischemic changes); no PACs and no PVCs Blood Pressure Blood Pressure Findings: Low blood pressure Blood Pressure Disposition: Referred to patients primary care provider [facility] Narrative Patient here ill-appearing and appeared to have what I believe is likely a vasovagal episode initially. Patient's heart rate recovered and then became persistently tachycardic, blood pressure improved upon making the patient supine initiation of IV fluids. Labs drawn and sent and chest x-ray performed due to patient's resenting complaint of worsening chest pain. Patient has had a recent upper respiratory infection and has been taking antibiotics. Chest x-ray revealed left-sided infiltrate, however given patient's ill appearance and persistent pain despite otherwise being young and healthy with only reported medical history of anemia, I discussed with them pursuing CT. Will patient's d- dimer was elevated and I felt this is more likely related to the occult infection, I discussed with them pursuing it as angiography to also rule out possible PE or pulmonary infarct which could present similarly on chest x-ray. CT angiography of the chest revealed a multifocal pneumonia, which likely explains the patient's worsening pain, persistent cough and URI symptoms. Patient started on IV antibiotics. Influenza added which resulted negative. Patient improved with additional IV fluids and pain medication. Patient has been updated on all results as well as need for additional inpatient management, they verbalized understanding were in agreement. Case discussed with the hospitalist. Patient was found to have anemia, unclear what her prior baseline is, patient does not report any additional bleeding. At this time I do not suspect bacteremia/sepsis. Patient with no recent travel or possible exposures to put her at risk for tuberculosis. Patient not otherwise immunocompromised. Unclear etiology of her multifocal pneumonia. Impression & Plan Multifocal pneumonia, Anemia, Vasovagal episode, Chest pain, Tachycardia Discharge Plan Visit Data *Final* Discharge Date/Time: 09/05/19 01:12 Chief Complaint: Shortness of Breath/Dyspnea Stated Complaint: SOB,LEFT SIDE CHEST PAIN ED Provider: Alberta Wagner Discharge Problem: Multifocal pneumonia, Anemia, Vasovagal episode, Chest pain, Tachycardia Patient Disposition: Admitted As Inpatient Discharge Instructions Interventions: ED Discharge Assessment Last Done: 09/05/19 01:12 Discharge Problem: Anemia Qualifiers: Anemia type: unspecified type Qualified Code(s): D64.9 - Anemia, unspecified Chest pain Qualifiers: Chest pain type: unspecified Qualified Code(s): R07.9 - Chest pain, unspecified The scribe's documentation has been prepared under my direction and personally reviewed by me in its entirety. I confirm that the note above accurately reflects all work, treatment, procedures, and medical decision making performed by me.
[2019-09-10 05:59] LABS: 18KDIGG Band NONREACTIVE (NONREACTIVE); 23KDIGG Band NONREACTIVE (NONREACTIVE); 23KDIGM Band REACTIVE (NONREACTIVE); 28KDIGG Band NONREACTIVE (NONREACTIVE); 30KDIGG Band NONREACTIVE (NONREACTIVE); 39KDIGG Band NONREACTIVE (NONREACTIVE); 39KDIGM Band NONREACTIVE (NONREACTIVE); 41KDIGG Band REACTIVE (NONREACTIVE); 41KDIGM Band NONREACTIVE (NONREACTIVE); 45KDIGG Band NONREACTIVE (NONREACTIVE); 58KDIGG Band NONREACTIVE (NONREACTIVE); 66KDIGG Band NONREACTIVE (NONREACTIVE); 93KDIGG Band NONREACTIVE (NONREACTIVE); Lyme Antibodies, WB IgG NEGATIVE (NEGATIVE); Lyme Antibodies, WB IgM NEGATIVE (NEGATIVE)
== END 2019-09-06 16:10 | disposition home or self-care (01) | DRG 871 ==
LOC: ED 20:51 → 2N 09-05 00:21 → SUATTDRO 09-05 00:21 → 2N 09-05 01:12

== ENCOUNTER 2025-09-10 21:50 | Inpatient (IN) ==
[2025-09-10] MEDS ORDERED: ACETAMINOPHEN 500 MG TAB PO PRN (21:58)
[2025-09-10] MEDS ORDERED: LIDOCAINE 1% LOCAL 20 ML VIAL INFIL PRN (21:58)
[2025-09-10] MEDS ORDERED: CALCIUM CARBONATE 500 MG CHEWABLE TAB PO PRN (21:58)
--- NOTE | 2025-09-10 22:30 | History & Physical Report ---
Date of Service September 10, 2025 Assessment & Plan (1) Post-term , 40-42 weeks of gestation: Plan: 35-year-old -0-1-2 at 40 weeks and 5 days of gestation presenting today with uterine contractions and early labor, Vital signs stable afebrile, GBS positive, heart rate reassuring, Plan to admit, monitor, labs, start penicillin per protocol, augment with Pitocin after second dose of penicillin if needed patient does not plan to get epidural for pain for now, All questions were answered. (2) History of depression: (3) Uterine contractions at greater than 20 weeks of gestation: (4) GBS (group B Streptococcus carrier), +RV culture, currently : History of Present Illness Chief Complaint: Contractions Primary Care Provider: NO PCP patient is a 35-year-old at 40 weeks and 5 days of gestation who was scheduled for induction of labor for postdates tomorrow morning, starting her contractions during the day and then they got more regular and painful after 8 PM. She has been coming down every 5 minutes. She had a bloody show and mucus discharge but denies gush of fluid leakage or active bleeding. bleeding was minimal. She rates her pain 8 out of 10 but states it feels like a cramp not painful for her. She does not plan to get epidural. She reports good mo vements. Her has been uncomplicated except, 1. GBS positive, 2. Depression during , takes Zoloft and has been stable Allergies Allergy/AdvReac Type Severity Reaction Status Date / Time No Known Allergies Allergy Verified 11/02/19 14:06 Home Medications Medication Instructions Recorded Confirmed Type desogestrel 0.15 mg-ethinyl 1 tab PO DAILY 09/04/19 11/02/19 History estradiol 0.03 mg tablet (Enskyce) docusate sodium 100 mg capsule 100 mg PO DAILY 09/04/19 11/02/19 History (Stool Softener) albuterol sulfate 90 mcg/actuation 1 puffs inhalation Q6H PRN 09/06/19 11/02/19 Rx aerosol inhaler (Ventolin HFA) shortness of breath or wheezing #6.7 grams ascorbic acid (vitamin C) 1,000 mg 1 g PO TID 09/29/19 11/02/19 History tablet (Vitamin C) ferrous sulfate 325 mg (65 mg 325 mg PO DAILY 10/04/19 11/02/19 History iron) tablet benzonatate 100 mg capsule 100 - 200 mg (1 - 2 x 100 mg) PO 11/02/19 11/02/19 Rx (Tessalon Perles) TID PRN Cough #180 caps Patient History Medical History (Updated 09/10/25 @ 22:38 by Etta Camacho MD) History of polyhydramnios History of vaginal discharge History of blood transfusion History of depression Anemia Surgical History History of oral surgery History of dilation and curettage No pertinent past surgical history Family History Brother Hypertension Other Anemia Depression Diabetes No pertinent family history in first degree relatives Social History (Updated 05/06/25 @ 15:46 by Cristal Wesley RN) Smoking Status: Former smoker Second Hand Exposure: No; Do You Dip or Chew Tobacco: No; Hx Alcohol Use: No Hx Substance Use: No Preferred Language: Tamaz[place] Communication Ability: Effective Health Care Assistant Required: No Beliefs That Will Affect Care: None Current Living Situation: Family Current Living Situation Comment: Lives with and children current occupational status: employed other: [employer] Feels Safe at Home: Yes Diet: regular Assistive Devices: None OB History 2 full-term spontaneous vaginal deliveries, in 2013 and 2017 1 [employer] History no history of STDs, no history of chlamydia, gonorrhea, herpes Review of Systems as per Subjective / HPI Physical Exam Constitutional: WD/WN, vitals as above well developed, well nourished and comfortable Gastrointestinal (Abdomen): normal bowel sounds, soft, nontender, no hepatosplenomegaly Genitourinary: normal external appearance OB Exam Abdomen: + vertex Manual OB Exam: + cervical dilation 3 cm, + cervical effacement 40% and + station -2 OB Exam Monitor Tracing: + external uterine monitor used and + category I Results & Data Vital Signs (Past 12 Hours) Vital Signs Pulse BP 09/10/25 21:59 72 115/69
[2025-09-10 22:52] LABS: Hematocrit (blood only) 32.8 % (37.0-47.0); Hemoglobin 11.3 g/dL (12.0-16.0); Mean Corpuscular Hemoglobin 30.6 pg (25.0-34.0); Mean Corpuscular Volume 88.9 fL (80.0-100.0); Platelet Count 173 K/uL (130-400); RDW Standard Deviation 44.9 fL (36.4-46.3); Red Blood Count 3.69 M/uL (4.20-5.40); White Blood Count 8.27 K/ul (4.8-10.8)
[2025-09-10 23:09] LABS: Alanine Aminotransferase 9.0 U/L (7-52); Albumin Globulin Ratio 1.3 (0.9-2); Albumin Level 3.7 gm/dl (3.4-5.0); Alkaline Phosphatase 142.0 U/L (34-104); Anion Gap 8.0 (3-11); Bilirubin,Total 0.3 mg/dl (0.2-1.0); Blood Urea Nitrogen 6.0 mg/dl (6-23); Calcium 9.1 mg/dl (8.6-10.3); Carbon Dioxide 22.0 mmol/L (21-32); Chloride 105.0 mmol/L (98-107); Creatinine Clr Calc Pharmacy 187.6 ml/min; Globulin 2.8 gm/dl (2.5-4.0); Glucose 88.0 mg/dl (70-99(Fasting)); Potassium 3.6 mmol/L (3.5-5.1); Sodium 135.0 mmol/L (136-145); Total Protein 6.5 gm/dl (6.0-8.3)
[2025-09-10] MEDS: PENICILLIN GK 6 MU in DEXTROSE 5% 250 ML IV STA (23:22)
[2025-09-11] MEDS: PENICILLIN GK 3 MU in DEXTROSE 5% 100 ML IV PRN (03:03)
[2025-09-11] MEDS: LACTATED RINGER'S 1,000 ML IV PRN (05:22)
[2025-09-11] MEDS: OXYTOCIN 30 UNITS/NSS 30 UNITS/500 ML BAG IV PRN ×2 (05:25→13:35)
--- NOTE | 2025-09-11 07:32 | Obstetrical Progress Note ---
Date of Service September 11, 2025 Subjective Patient is reevaluated. Received 2 doses of PCN and the Oxytocin was started. Feels contractions more painful but still smiling. Slept briefly earlier and now tired VE; 4/ 50%, softer, -2 FHR categ I [place] ctxs q 4-5 min, Oxytocin is at 5 miU/ min Thinking about epidural but has not decided yet. Continue to monitor closely Results & Data Vital Signs (Past 12 Hours) Vital Signs Temp Pulse Resp BP 09/11/25 06:59 72 106/66 09/11/25 06:36 80 101/55 L 09/11/25 06:30 18 09/11/25 06:30 18 09/11/25 06:00 18 09/11/25 06:00 18 09/11/25 05:04 80 98/56 L 09/11/25 05:01 18 09/11/25 05:01 36.9 C 18 09/11/25 03:57 18 09/11/25 03:57 36.7 C 18 09/11/25 01:59 36.6 C 76 16 102/63 09/11/25 00:08 72 113/63 09/11/25 00:00 18 09/11/25 00:00 36.9 C 18 09/10/25 22:15 36.8 C 18 09/10/25 22:00 18 09/10/25 22:00 36.8 C 18 09/10/25 21:59 72 115/69
[2025-09-11] MEDS ORDERED: diphenhydrAMINE 50 MG/ML VIAL IV PRN (09:23)
[2025-09-11] MEDS ORDERED: LIDOCAINE 2% MPF LOCAL 5 ML VIAL EPI PRN (09:23)
[2025-09-11] MEDS ORDERED: ONDANSETRON INJ 2 MG/ML 2 ML VIAL IV PRN ×2 (09:23→17:01)
[2025-09-11] MEDS ORDERED: NALBUPHINE HCL INJ 10 MG/ML AMP IV PRN (09:23)
[2025-09-11] MEDS ORDERED: ROPIVACAINE 0.5% PF 5 MG/ML 20 ML VIAL EPI PRN (09:23)
[2025-09-11] MEDS ORDERED: SODIUM CHLORIDE 0.9% PF INJ 10 ML VIAL EPI PRN (09:23)
[2025-09-11] MEDS ORDERED: BUPIVACAINE 0.25% PF 30 ML VIAL EPI PRN (09:23)
[2025-09-11] MEDS ORDERED: NALOXONE HCL 0.4 MG/1 ML VIAL/CARP IV PRN (09:23)
[2025-09-11] MEDS ORDERED: fentANYL 2 MCG/ML BUPIVacaine 0.125%-NSS 100ML BAG EPI PRN (09:23)
[2025-09-11] MEDS ORDERED: NALOXONE HCL 1 MG in SODIUM CHLORIDE 0.9% 1,000 ML IV PRN (09:23)
--- NOTE | 2025-09-11 09:23 | Anesthesiology Consultation ---
Date of Service September 11, 2025 Assessment & Plan ASA ASA2 Proposed Anesthesia Anesthesia Type: Labor Epidural Risk / Benefits Reviewed With: PT / POA / Parent / Guardian, Accepts Plan and Informed Consent Obtained Additional Notes verbal consent and consent signed after procedure 2/2 pain History Height/Weight Height: 5 ft 6 in Weight: 83.461 kg Allergies Allergy/AdvReac Type Severity Reaction Status Date / Time No Known Allergies Allergy Verified 11/02/19 14:06 Medications Home Medications Medication Instructions Recorded Confirmed Last Taken desogestrel 0.15 mg-ethinyl 1 tab PO DAILY 09/04/19 11/02/19 09/29/19 estradiol 0.03 mg tablet (Enskyce) docusate sodium 100 mg capsule 100 mg PO DAILY 09/04/19 09/10/25 09/10/25 (Stool Softener) albuterol sulfate 90 mcg/actuation 1 puffs inhalation Q6H PRN 09/06/19 09/10/25 Unknown aerosol inhaler (Ventolin HFA) shortness of breath or wheezing #6.7 grams ascorbic acid (vitamin C) 1,000 mg 1 g PO TID 09/29/19 09/10/25 09/29/19 tablet (Vitamin C) ferrous sulfate 325 mg (65 mg 325 mg PO DAILY 10/04/19 09/10/25 Unknown iron) tablet benzonatate 100 mg capsule 100 - 200 mg (1 - 2 x 100 mg) PO 11/02/19 11/02/19 Unknown (Tessalon Perles) TID PRN Cough #180 caps Active Medications Generic Name Dose Route Start Last Admin Trade Name Freq PRN Reason Stop Dose Admin Lactated Ringer's 1,000 mls @ 150 mls/hr 09/10/25 21:58 09/11/25 09:37 Lr IV 09/12/25 21:57 150 mls/hr .Q6H40M PRN Infusion L&D Protocol Protocol Penicillin G Potassium 3 mu/ 106 mls @ 100 mls/hr 09/11/25 00:58 09/11/25 11:04 Dextrose IV 09/21/25 00:57 100 mls/hr Q4H PRN Administration GBS(+) Until Delivery Oxytocin 30 units in 500 mls @ 11 mls/hr 09/11/25 04:30 09/11/25 08:30 Pitocin 30 Units/Nss IV 09/12/25 04:29 0.66 units/hr .Q24H PRN 11 mls/hr Labor Induction/Augmentation Titration Protocol 0.66 UNITS/HR Past Medical History Medical History History of polyhydramnios History of vaginal discharge History of blood transfusion History of depression Anemia Exercise / Class Metabolic Activity II 4-5 Yardwork/Stairs/Walk up hill Past Family History Family History Brother Hypertension Other Anemia Depression Diabetes No pertinent family history in first degree relatives Past Surgical History Surgical History History of oral surgery History of dilation and curettage No pertinent past surgical history Past Anesthesia History No Hx of Anesthesia Complications and No Family Hx of Anesthesia Complications History of PONV No Hx of PONV and No Hx of Motion Sickness Social History Smoking Status: Former smoker Do You Dip or Chew Tobacco: No Smoking End Date: 2012 Hx Alcohol Use: No Hx Substance Use: No substance use type: does not use Review of Systems denies fever/cough/ colds/ chest pain/ SOB/ ALESHIA denies ALESHIA Physical Exam Vital Signs Last Vital Signs Temp 36.6 C 09/11/25 11:55 Pulse 81 09/11/25 12:22 Resp 16 09/11/25 11:30 BP 107/58 L 09/11/25 12:22 Pulse Ox 100 09/11/25 12:18 ENMT Mouth: no TMJ abnormality and no dentition abnormality Thyromental Distance: > or= 3.5 Finger Breadths Mallampati Class: II Neck neck extension not limited Respiratory normal respiratory effort; no respiratory distress Auscultation: lungs clear to auscultation bilaterally Cardiovascular Rate/Rhythm: regular rate and regular rhythm Neurologic moves all extremities Psychiatric Orientation: alert and oriented x 3 Testing Laboratory Results 09/10/25 22:33 09/10/25 22:33
[2025-09-11] MEDS: fentANYL 2 MCG/ML BUPIVacaine 0.125%-NSS 100ML BAG ONE (10:01)
[2025-09-11] MEDS: BUPIVACAINE 0.25% PF 30 ML VIAL ONE (10:09)
[2025-09-11] MEDS: LIDOCAINE 2%/EPINEPHRINE 1:200,000 20 ML PF ONE (10:09)
[2025-09-11] MEDS: SODIUM CHLORIDE 0.9% PF INJ 10 ML VIAL ONE (10:11)
[2025-09-11] MEDS: LIDOCAINE 2%/EPINEPHRINE 1:200,000 20 ML PF EPI STA (10:12)
[2025-09-11] MEDS: SODIUM CHLORIDE 0.9% PF INJ 10 ML VIAL EPI STA (10:12)
[2025-09-11] MEDS: BUPIVACAINE 0.25% PF 30 ML VIAL EPI STA (10:12)
--- NOTE | 2025-09-11 12:07 | Labor Progress Brief Note ---
Date of Service September 11, 2025 Assessment & Plan Admission and Anticipated Discharge Date Admission Date: September 10, 2025 Physical Exam Genitourinary: Manual OB Exam: + cervical dilation 10 cm, + cervical effacement 100%, + station + 1 and + amniotic fluid meconium OB Exam Monitor Tracing: + external FHT monitor used, + external uterine monitor used, + category I and + normal FHT variability AROM with Amni-hook light meconium fluid will have patient start to push Results & Data Vital Signs (Past 12 Hours) Vital Signs Temp Pulse Resp BP Pulse Ox 09/11/25 12:03 73 97 09/11/25 11:58 74 96 09/11/25 11:53 79 95 09/11/25 11:48 71 97 09/11/25 11:43 70 96 09/11/25 11:38 73 96 09/11/25 11:33 72 97 09/11/25 11:30 16 09/11/25 11:30 16 09/11/25 11:28 73 98 09/11/25 11:23 72 97 09/11/25 11:18 74 96 09/11/25 11:13 73 96 09/11/25 11:08 75 99 09/11/25 11:05 72 107/62 09/11/25 11:03 72 98 09/11/25 11:01 72 110/60 09/11/25 11:00 16 09/11/25 11:00 16 09/11/25 10:58 72 97 09/11/25 10:56 76 112/63 09/11/25 10:53 75 98 09/11/25 10:50 75 109/62 09/11/25 10:48 75 97 09/11/25 10:45 77 16 113/63 09/11/25 10:43 81 97 09/11/25 10:40 71 109/63 09/11/25 10:38 73 97 09/11/25 10:35 72 108/63 09/11/25 10:33 75 97 09/11/25 10:31 76 116/68 09/11/25 10:30 18 09/11/25 10:30 18 09/11/25 10:28 76 97 09/11/25 10:25 72 113/63 09/11/25 10:23 73 97 09/11/25 10:20 75 108/62 09/11/25 10:18 74 97 09/11/25 10:15 18 09/11/25 10:15 18 09/11/25 10:14 78 110/61 09/11/25 10:13 75 98 09/11/25 10:12 77 110/62 09/11/25 10:10 79 109/62 09/11/25 10:08 77 110/63 97 09/11/25 10:06 78 110/63 09/11/25 10:04 75 116/59 L 93 09/11/25 10:03 98 09/11/25 10:03 80 09/11/25 10:03 76 114/58 L 09/11/25 10:01 86 124/58 L 09/11/25 10:00 22 09/11/25 10:00 36.9 C 22 09/11/25 09:58 80 116/62 99 09/11/25 09:56 85 116/63 09/11/25 09:54 79 123/70 09/11/25 09:53 83 99 09/11/25 09:48 92 H 100 09/11/25 09:47 94 H 129/69 09/11/25 09:43 77 100 09/11/25 09:38 74 100 09/11/25 09:33 75 99 09/11/25 09:05 71 96/63 L 09/11/25 08:03 74 104/61 09/11/25 07:00 18 09/11/25 07:00 36.8 C 18 09/11/25 06:59 72 106/66 09/11/25 06:36 80 101/55 L 09/11/25 06:30 18 09/11/25 06:30 18 09/11/25 06:00 18 09/11/25 06:00 18 09/11/25 05:04 80 98/56 L 09/11/25 05:01 18 09/11/25 05:01 36.9 C 18 09/11/25 03:57 18 09/11/25 03:57 36.7 C 18 09/11/25 01:59 36.6 C 76 16 102/63 09/11/25 00:08 72 113/63
[2025-09-11] MEDS: METHYLERGONOVINE MALEATE 0.2 MG/ML AMP IM STA (12:25)
[2025-09-11] MEDS ORDERED: ALBUTEROL HFA 8 GM INHALER INH PRN (12:38)
[2025-09-11] MEDS ORDERED: BENZOCAINE 20% SPRY 85 APPLN/85 GM CAN EXT PRN ×2 (12:38→19:00)
[2025-09-11] MEDS ORDERED: ACETAMINOPHEN 325 MG TAB PO PRN ×2 (12:38→19:00)
[2025-09-11] MEDS ORDERED: HYDROCORTISONE ACETATE 25 MG SUPP PR PRN ×2 (12:38→19:00)
[2025-09-11] MEDS ORDERED: OXYTOCIN 30 UNITS/NSS 30 UNITS/500 ML BAG IV PRN ×2 (12:38→19:00)
--- NOTE | 2025-09-11 12:46 | Delivery Summary ---
Vaginal Delivery Summary Date of Service September 11, 2025 Vaginal Delivery Summary live female ELYSSA over intact perineum with nuchal cord x1 reduced at delivery. Apgars 8/9birth weight pending. Cord blood obtained followed by spontaneous delivery of intact placenta. No tears or lacerations noted. Uterine atony following delivery requiring fundal massage and Methergine 0.2 mg IM post-delivery. QBL 388 ml. No bleeding following IM Methergine. Final sponge and instrument count are correct. Mom and baby stable.
--- NOTE | 2025-09-11 14:22 | Anesthesia Procedure Note ---
Date of Service September 11, 2025 Anesthesia Post Epidural Note Vital Signs Vital Signs: Temp Pulse Resp BP Pulse Ox 36.6 C 75 16 114/55 L 100 09/11/25 11:55 09/11/25 14:07 09/11/25 11:30 09/11/25 14:07 09/11/25 12:18 Pain Intensity Abdomen: Pain Intensity: 5 Notes Mental Status: alert / awake / arousable and participated in evaluation Nausea / Vomiting: adequately controlled Pain: adequately controlled Airway Patency, RR, SpO2: stable & adequate BP & HR: stable & adequate Hydration State: stable & adequate Neuraxial Anesthesia: was administered and sensory block resolved Anesthetic Complications: no major complications apparent and Pt Satisfied with anesthetic care Epidural: Removed without complications and With tip intact
[2025-09-11] MEDS: ASCORBIC ACID 500 MG TAB PO SCH (14:49)
[2025-09-11] MEDS: DIPHTHER/TETAN/PERTUS Vaccine (Tdap, Adol/Adult) 0.5mL IM ONE (15:20)
[2025-09-11] MEDS ORDERED: SODIUM CHLORIDE 0.9% 100 ML IV PRN ×2 (15:43→18:06)
[2025-09-11] MEDS: TRANEXAMIC ACID / 0.7% NACL 1000MG/100ML BAG IV ONE ×2 (15:54→17:40)
[2025-09-11] MEDS: TRANEXAMIC ACID / 0.7% NACL 1,000 MG/100 ML BAG IV ONE (15:54)
--- NOTE | 2025-09-11 16:19 | History & Physical Bridge Note ---
Date of Service September 11, 2025 History & Physical Bridge Note I have examined the patient, reviewed the History & Physical and in the interval since the performance of the History & Physical I have noted the following changes of clinical significance: no changes noted
--- NOTE | 2025-09-11 16:23 | Progress Note ---
Date of Service September 11, 2025 Assessment & Plan Admission and Anticipated Discharge Date Admission Date: September 10, 2025 Subjective Patient continues to have bleeding post delivery with passage of some small clots. I saw and evaluated patient. Fundus is firm below U. Clots expressed with fundal pressure. Bedside ultrasound done by tech did not show definitive retained placenta. Placenta was intact at delivery and noted was a velamentous cord insertion. Will bring the patient to the OR for D&C. She received TXA 1 gram. Results & Data Vital Signs (Past 12 Hours) Vital Signs Temp Pulse Resp BP Pulse Ox 09/11/25 16:06 69 107/61 09/11/25 15:51 77 108/64 09/11/25 15:50 75 106/60 09/11/25 15:21 81 100/57 L 09/11/25 15:06 86 110/61 09/11/25 14:51 87 107/57 L 09/11/25 14:36 73 109/61 09/11/25 14:21 77 100/56 L 09/11/25 14:07 75 114/55 L 09/11/25 13:51 85 108/64 09/11/25 13:36 72 117/70 09/11/25 13:21 77 108/72 09/11/25 13:06 80 132/71 09/11/25 12:52 77 141/74 H 09/11/25 12:36 86 138/67 09/11/25 12:22 81 107/58 L 09/11/25 12:18 88 100 09/11/25 12:16 82 92 09/11/25 12:13 81 98 09/11/25 12:10 79 92 09/11/25 12:08 76 95 09/11/25 12:06 82 109/70 09/11/25 12:03 73 97 09/11/25 11:58 74 96 09/11/25 11:55 36.6 C 09/11/25 11:53 79 95 09/11/25 11:48 71 97 09/11/25 11:43 70 96 09/11/25 11:38 73 96 09/11/25 11:33 72 97 09/11/25 11:30 16 09/11/25 11:30 16 09/11/25 11:28 73 98 09/11/25 11:23 72 97 09/11/25 11:18 74 96 09/11/25 11:13 73 96 09/11/25 11:08 75 99 09/11/25 11:05 72 107/62 09/11/25 11:03 72 98 09/11/25 11:01 72 110/60 09/11/25 11:00 16 09/11/25 11:00 16 09/11/25 10:58 72 97 09/11/25 10:56 76 112/63 09/11/25 10:53 75 98 09/11/25 10:50 75 109/62 09/11/25 10:48 75 97 09/11/25 10:45 77 16 113/63 09/11/25 10:43 81 97 09/11/25 10:40 71 109/63 09/11/25 10:38 73 97 09/11/25 10:35 72 108/63 09/11/25 10:33 75 97 09/11/25 10:31 76 116/68 09/11/25 10:30 18 09/11/25 10:30 18 09/11/25 10:28 76 97 09/11/25 10:25 72 113/63 09/11/25 10:23 73 97 09/11/25 10:20 75 108/62 09/11/25 10:18 74 97 09/11/25 10:15 18 09/11/25 10:15 18 09/11/25 10:14 78 110/61 09/11/25 10:13 75 98 09/11/25 10:12 77 110/62 09/11/25 10:10 79 109/62 09/11/25 10:08 77 110/63 97 09/11/25 10:06 78 110/63 09/11/25 10:04 75 116/59 L 93 09/11/25 10:03 98 09/11/25 10:03 80 09/11/25 10:03 76 114/58 L 09/11/25 10:01 86 124/58 L 09/11/25 10:00 22 09/11/25 10:00 36.9 C 22 09/11/25 09:58 80 116/62 99 09/11/25 09:56 85 116/63 09/11/25 09:54 79 123/70 09/11/25 09:53 83 99 09/11/25 09:48 92 H 100 09/11/25 09:47 94 H 129/69 09/11/25 09:43 77 100 09/11/25 09:38 74 100 09/11/25 09:33 75 99 09/11/25 09:05 71 96/63 L 09/11/25 08:03 74 104/61 09/11/25 07:00 18 09/11/25 07:00 36.8 C 18 09/11/25 06:59 72 106/66 09/11/25 06:36 80 101/55 L 09/11/25 06:30 18 09/11/25 06:30 18 09/11/25 06:00 18 09/11/25 06:00 18 09/11/25 05:04 80 98/56 L 09/11/25 05:01 18 09/11/25 05:01 36.9 C 18
[2025-09-11] MEDS ORDERED: ATROPINE SULFATE 0.1 MG/ML 10ML SYR IV PRN (17:01)
--- NOTE | 2025-09-11 17:01 | Anesthesiology Consultation ---
Date of Service September 11, 2025 Assessment & Plan Chart Review Chart Review: Acceptable Risk for Surgery Consults Requested none ASA ASA2E Proposed Anesthesia Anesthesia Type: General Risk / Benefits Reviewed With: Accepts Plan and Informed Consent Obtained Additional Comments: pt recently ate in last 2 hours. Given risk of PPH, will proceed given emergent nature of the PPH. Discussed risks of aspiration to patient. All questions answered. Plan for RSI and ETT. History Surgery Operation Date: 09/11/25 17:30 Proposed Procedures p Possible Retained Placenta - Paulino Skaggs MD Height/Weight Height: 5 ft 6 in Weight: 83.461 kg Allergies Allergy/AdvReac Type Severity Reaction Status Date / Time No Known Allergies Allergy Verified 11/02/19 14:06 Medications Home Medications Medication Instructions Recorded Confirmed Last Taken desogestrel 0.15 mg-ethinyl 1 tab PO DAILY 09/04/19 11/02/19 09/29/19 estradiol 0.03 mg tablet (Enskyce) docusate sodium 100 mg capsule 100 mg PO DAILY 09/04/19 09/10/25 09/10/25 (Stool Softener) albuterol sulfate 90 mcg/actuation 1 puffs inhalation Q6H PRN 09/06/19 09/10/25 Unknown aerosol inhaler (Ventolin HFA) shortness of breath or wheezing #6.7 grams ascorbic acid (vitamin C) 1,000 mg 1 g PO TID 09/29/19 09/10/25 09/29/19 tablet (Vitamin C) ferrous sulfate 325 mg (65 mg 325 mg PO DAILY 10/04/19 09/10/25 Unknown iron) tablet benzonatate 100 mg capsule 100 - 200 mg (1 - 2 x 100 mg) PO 11/02/19 11/02/19 Unknown (Tessalon Perles) TID PRN Cough #180 caps Active Medications Generic Name Dose Route Start Last Admin Trade Name Freq PRN Reason Stop Dose Admin Ascorbic Acid 1,000 mg 09/11/25 14:00 09/11/25 14:49 Ascorbic Acid 500 Mg Tab PO 10/11/25 13:59 1,000 mg TID BECKA Administration Oxytocin 30 units in 500 mls @ 0 mls/hr 09/10/25 21:58 09/11/25 16:20 Pitocin 30 Units/Nss IV 09/13/25 21:57 0 units/hr .Q0M PRN 0 mls/hr Bleeding Control Titration Protocol 0 UNITS/HR Lactated Ringer's 1,000 mls @ 150 mls/hr 09/10/25 21:58 09/11/25 16:30 Lr IV 09/12/25 21:57 Infused .Q6H40M PRN Infusion L&D Protocol Protocol Tranexamic Acid 1,000 mg in 100 mls @ 600 mls/hr 09/11/25 21:47 09/11/25 16:30 Tranexamic Acid / 0.7% Nacl IV 09/11/25 21:56 Infused ONE ONE Infusion Past Medical History Medical History History of polyhydramnios History of vaginal discharge History of blood transfusion History of depression Anemia Past Family History Family History Brother Hypertension Other Anemia Depression Diabetes No pertinent family history in first degree relatives Past Surgical History Surgical History History of oral surgery History of dilation and curettage No pertinent past surgical history Social History Smoking Status: Former smoker Do You Dip or Chew Tobacco: No Smoking End Date: 2012 Hx Alcohol Use: No Hx Substance Use: No substance use type: does not use Physical Exam Vital Signs Last Vital Signs Temp 36.6 C 09/11/25 11:55 Pulse 69 09/11/25 16:06 Resp 16 09/11/25 11:30 BP 107/61 09/11/25 16:06 Pulse Ox 100 09/11/25 12:18 Constitutional no acute distress ENMT Mouth: no TMJ abnormality Thyromental Distance: > or= 3.5 Finger Breadths Mallampati Class: II Neck + abnormal visual inspection Respiratory + abnormal respiratory effort Cardiovascular Rate/Rhythm: regular rate and regular rhythm Chest (Breasts) Chest: no pacemaker Musculoskeletal Spine: normal cervical ROM Neurologic moves all extremities Psychiatric Orientation: alert and oriented x 3 Testing Laboratory Results 09/10/25 22:33 09/10/25 22:33 Blood Type A Positive 09/10/25 22:33 Antibody Screen NEGATIVE 09/10/25 22:33
--- NOTE | 2025-09-11 17:18 | Ultrasound Report ---
Clinical History: bleeding Findings: Transabdominal pelvic sonography was performed. The uterus is enlarged, consistent with the state. No obvious retained placental tissue is seen. The endometrium is heterogeneous and has indistinct margins. It measures up to 2.3 cm in thickness Impression: Heterogeneous endometrial cavity, likely due to blood products. No clear retained placenta is identified, though small retained fragments cannot be excluded ACT 112: Positive. There are findings on this exam that require communication between the performing entity and the patient following Patient Test Result Information Act ([place] ACT 112) guidelines. Electronically signed by Jasmeet Zendejas 09-11-2025 5:18 PM
[2025-09-11] MEDS ORDERED: OXYTOCIN 10 UNITS/ML VIAL ONE (17:38)
[2025-09-11] MEDS: CARBOPROST TROMETHAMINE 250 MCG/ML AMPUL ONE (17:40)
[2025-09-11 18:29] LABS: Hematocrit (blood only) 28.3 % (37.0-47.0); Hemoglobin 9.5 g/dL (12.0-16.0)
--- NOTE | 2025-09-11 18:38 | Anesthesiology Progress Note ---
Date of Service September 11, 2025 Anesthesia Post Procedure Vital Signs Vital Signs: Temp Pulse Pulse Pulse Resp BP BP 09/11/25 18:30 74 18 116/79 09/11/25 18:24 36.6 C 76 16 113/75 09/11/25 18:20 78 18 122/73 09/11/25 18:12 36.5 C 80 17 116/71 09/11/25 16:52 37.2 C 75 18 113/81 09/11/25 16:06 69 107/61 09/11/25 15:51 77 108/64 09/11/25 15:50 75 106/60 09/11/25 15:21 81 100/57 L 09/11/25 15:06 86 110/61 09/11/25 14:51 87 107/57 L 09/11/25 14:36 73 109/61 09/11/25 14:21 77 100/56 L 09/11/25 14:07 75 114/55 L 09/11/25 13:51 85 108/64 09/11/25 13:36 72 117/70 09/11/25 13:21 77 108/72 09/11/25 13:06 80 132/71 09/11/25 12:52 77 141/74 H 09/11/25 12:36 86 138/67 09/11/25 12:22 81 107/58 L 09/11/25 12:18 88 09/11/25 12:16 82 09/11/25 12:13 81 09/11/25 12:10 79 09/11/25 12:08 76 09/11/25 12:06 82 109/70 09/11/25 12:03 73 09/11/25 11:58 74 09/11/25 11:55 36.6 C 09/11/25 11:53 79 09/11/25 11:48 71 09/11/25 11:43 70 09/11/25 11:38 73 09/11/25 11:33 72 09/11/25 11:30 16 09/11/25 11:30 16 09/11/25 11:28 73 09/11/25 11:23 72 09/11/25 11:18 74 09/11/25 11:13 73 09/11/25 11:08 75 09/11/25 11:05 72 107/62 09/11/25 11:03 72 09/11/25 11:01 72 110/60 09/11/25 11:00 16 09/11/25 11:00 16 09/11/25 10:58 72 09/11/25 10:56 76 112/63 09/11/25 10:53 75 09/11/25 10:50 75 109/62 09/11/25 10:48 75 09/11/25 10:45 77 16 113/63 09/11/25 10:43 81 09/11/25 10:40 71 109/63 09/11/25 10:38 73 09/11/25 10:35 72 108/63 09/11/25 10:33 75 09/11/25 10:31 76 116/68 09/11/25 10:30 18 09/11/25 10:30 18 09/11/25 10:28 76 09/11/25 10:25 72 113/63 09/11/25 10:23 73 09/11/25 10:20 75 108/62 09/11/25 10:18 74 09/11/25 10:15 18 09/11/25 10:15 18 09/11/25 10:14 78 110/61 09/11/25 10:13 75 09/11/25 10:12 77 110/62 09/11/25 10:10 79 109/62 09/11/25 10:08 77 110/63 09/11/25 10:06 78 110/63 09/11/25 10:04 75 116/59 L 09/11/25 10:03 09/11/25 10:03 80 09/11/25 10:03 76 114/58 L 09/11/25 10:01 86 124/58 L 09/11/25 10:00 22 09/11/25 10:00 36.9 C 22 09/11/25 09:58 80 116/62 09/11/25 09:56 85 116/63 09/11/25 09:54 79 123/70 09/11/25 09:53 83 09/11/25 09:48 92 H 09/11/25 09:47 94 H 129/69 09/11/25 09:43 77 09/11/25 09:38 74 09/11/25 09:33 75 09/11/25 09:05 71 96/63 L 09/11/25 08:03 74 104/61 09/11/25 07:00 18 09/11/25 07:00 36.8 C 18 09/11/25 06:59 72 106/66 09/11/25 06:36 80 101/55 L 09/11/25 06:30 18 09/11/25 06:30 18 09/11/25 06:00 18 09/11/25 06:00 18 09/11/25 05:04 80 98/56 L 09/11/25 05:01 18 09/11/25 05:01 36.9 C 18 09/11/25 03:57 18 09/11/25 03:57 36.7 C 18 09/11/25 01:59 36.6 C 76 16 102/63 09/11/25 00:08 72 113/63 09/11/25 00:00 18 09/11/25 00:00 36.9 C 18 09/10/25 22:15 36.8 C 18 09/10/25 22:00 18 09/10/25 22:00 36.8 C 18 09/10/25 21:59 72 115/69 Pulse Ox O2 Del Method O2 Flow Rate 09/11/25 18:30 94 Room Air 09/11/25 18:24 94 09/11/25 18:20 96 Room Air 09/11/25 18:12 97 Oxymask 4 09/11/25 16:52 98 Room Air 09/11/25 16:06 09/11/25 15:51 09/11/25 15:50 09/11/25 15:21 09/11/25 15:06 09/11/25 14:51 09/11/25 14:36 09/11/25 14:21 09/11/25 14:07 09/11/25 13:51 09/11/25 13:36 09/11/25 13:21 09/11/25 13:06 09/11/25 12:52 09/11/25 12:36 09/11/25 12:22 09/11/25 12:18 100 09/11/25 12:16 92 09/11/25 12:13 98 09/11/25 12:10 92 09/11/25 12:08 95 09/11/25 12:06 09/11/25 12:03 97 09/11/25 11:58 96 09/11/25 11:55 09/11/25 11:53 95 09/11/25 11:48 97 09/11/25 11:43 96 09/11/25 11:38 96 09/11/25 11:33 97 09/11/25 11:30 09/11/25 11:30 09/11/25 11:28 98 09/11/25 11:23 97 09/11/25 11:18 96 09/11/25 11:13 96 09/11/25 11:08 99 09/11/25 11:05 09/11/25 11:03 98 09/11/25 11:01 09/11/25 11:00 09/11/25 11:00 09/11/25 10:58 97 09/11/25 10:56 09/11/25 10:53 98 09/11/25 10:50 09/11/25 10:48 97 09/11/25 10:45 09/11/25 10:43 97 09/11/25 10:40 09/11/25 10:38 97 09/11/25 10:35 09/11/25 10:33 97 09/11/25 10:31 09/11/25 10:30 09/11/25 10:30 09/11/25 10:28 97 09/11/25 10:25 09/11/25 10:23 97 09/11/25 10:20 09/11/25 10:18 97 09/11/25 10:15 09/11/25 10:15 09/11/25 10:14 09/11/25 10:13 98 09/11/25 10:12 09/11/25 10:10 09/11/25 10:08 97 09/11/25 10:06 09/11/25 10:04 93 09/11/25 10:03 98 09/11/25 10:03 09/11/25 10:03 09/11/25 10:01 09/11/25 10:00 09/11/25 10:00 09/11/25 09:58 99 09/11/25 09:56 09/11/25 09:54 09/11/25 09:53 99 09/11/25 09:48 100 09/11/25 09:47 09/11/25 09:43 100 09/11/25 09:38 100 09/11/25 09:33 99 09/11/25 09:05 09/11/25 08:03 09/11/25 07:00 09/11/25 07:00 09/11/25 06:59 09/11/25 06:36 09/11/25 06:30 09/11/25 06:30 09/11/25 06:00 09/11/25 06:00 09/11/25 05:04 09/11/25 05:01 09/11/25 05:01 09/11/25 03:57 09/11/25 03:57 09/11/25 01:59 09/11/25 00:08 09/11/25 00:00 09/11/25 00:00 09/10/25 22:15 09/10/25 22:00 09/10/25 22:00 09/10/25 21:59 Pain Intensity Abdomen: Pain Intensity: 2 Transfer of Care Handoff Completed per policy Notes Mental Status: alert / awake / arousable and participated in evaluation Patient Amnestic to Procedure: Yes Nausea / Vomiting: adequately controlled Pain: adequately controlled Airway Patency, RR, SpO2: stable & adequate BP & HR: stable & adequate Hydration State: stable & adequate Anesthetic Complications: no major complications apparent and Pt Satisfied with anesthetic care Notes: pt hemodynamically stable and has a svetlana balloon in place. 1 unit PRBC at surgeons request
--- NOTE | 2025-09-11 18:44 | Post Operative Brief Note ---
Immediate Post Op Note Date of Surgery September 11, 2025 Pre & Post Diagnosis Operation Date: 09/11/25 17:30 <No data on this case meets the specified criteria> I identified the patient and participated in the time-out.: Yes Procedure Operation Date: 09/11/25 17:30 <No data on this case meets the specified criteria> Surgeon Paulino Skaggs MD Professor Of Architecture none Quantitative Blood Loss (QBL) 1500 ml Findings Consistent with Post-Op Diagnosis uterine atony Fluids 1500 ml. Drains Mckinley Catheter and Other (Shanelle) Anesthesia Type General Complications none Disposition Accompanied Patient To Recovery: Yes Overlapping Procedure I was present for: the critical portions of procedure. I was immediately available: during the entire case. Back up surgeon: was not required during procedure.
[2025-09-11] MEDS ORDERED: LACTATED RINGER'S 1,000 ML IV SCH (19:00)
[2025-09-11] MEDS ORDERED: IBUPROFEN 600 MG TAB PO PRN (19:00)
[2025-09-11] MEDS: OXYTOCIN 20 UNITS/LR 1,002 ML IV SCH (19:23)
--- NOTE | 2025-09-11 19:23 | Operative Report ---
Post Operative Report Pre & Post Diagnosis Operation Date: 09/11/25 17:30 Pre-Op Diagnosis: Retained Placenta rule out atony Post-Op Diagnosis: Uterine atony I identified the patient and participated in the time-out.: Yes Procedure Operation Date: 09/11/25 17:30 Actual Procedures p Dilation and Curettage with ultrasound(Not Applicable) - Paulino Skaggs MD Surgeon Paulino Skaggs MD Starch Cooker none Estimated Blood Loss 1,500 Findings Consistent with Post-Op Diagnosis uterine atony Fluids 1500 ml. Specimens none Drains Mckinley EDWIGE Anesthesia Type General Complications none Disposition Accompanied Patient To Recovery: Yes Indications post hemorrhage uterine atony Description of Procedure Under satisfactory general anesthesia the patient was prepped and draped in the usual sterile fashion. A timeout was called and the patient was identified as April Elkins. Antibiotics were given preop. A atheter was then used to empty the bladder of 600 mL of clear urine. Weighted speculum was then placed in the posterior vault of the vagina and then ring forceps with was then placed on the anterior lip of the cervix. There was some bleeding noted. Ultrasound guidance was present and performed an ultrasound revealing the uterus to be enlarged and filled with some blood no definite placenta was noted on ultrasound. The large banjo curette was then used to curette out minimal amounts with no evidence of any tissue. The uterus was very boggy consistent with atony. The suction curette #12 was then used emptying out the contents of the uterus oxytocin was given in the IV and then the patient received Carboprost and Oxytocin in the IV for control of atony. Due to continued bleeding it was determined that the patient was a candidate for a EDWIGE device. This was brought down from L&D for insertion under anesthesia without any complications. The balloon was then filled up with 120 mL of saline and then the EDWIGE device was hooked up to negative suction. No further bleeding was noted at this point and the uterus was firm below the U. Ultrasound reevealed that the uterus was shrunk in size with the negative pressure on. At the end of the procedure a Mckinley was placed. Cytotec 1000 mg was placed rectally. The EBL was 1500 ml. The final sponge and instrument count were found to be correct. The patient was the taken to recovery room in stable condition. I attest to the content of the Intraoperative Record and any orders documented therein. Any exceptions are noted below.
[2025-09-11] MEDS ORDERED: DOCUSATE SODIUM 100 MG CAP PO SCH (21:00)
[2025-09-11] MEDS: DOCUSATE SODIUM 100 MG CAP PO SCH (21:08)
[2025-09-11] MEDS: IBUPROFEN 600 MG TAB PO PRN (21:16)
--- NOTE | 2025-09-11 22:41 | Obstetrical Progress Note ---
Date of Service September 11, 2025 Subjective doing well. no SOB or dizziness. Physical Exam Genitourinary Shanelle removed from uterus. The fundus is firm below the U with no bleeding. CBC pending. Results & Data Vital Signs (Past 12 Hours) Vital Signs Temp Pulse Pulse Pulse Resp BP BP 09/11/25 22:12 78 09/11/25 22:07 69 09/11/25 22:06 85 104/70 09/11/25 22:02 70 09/11/25 21:57 83 09/11/25 21:52 84 09/11/25 21:51 82 97/54 L 09/11/25 21:47 94 H 09/11/25 21:46 83 106/70 09/11/25 21:42 73 09/11/25 21:37 71 09/11/25 21:36 64 104/68 09/11/25 21:32 72 09/11/25 21:27 64 09/11/25 21:22 68 09/11/25 21:21 69 101/67 09/11/25 21:17 82 09/11/25 21:12 72 09/11/25 21:07 72 09/11/25 21:06 68 96/64 L 09/11/25 21:02 72 09/11/25 20:57 65 09/11/25 20:52 73 09/11/25 20:51 76 99/67 L 09/11/25 20:47 09/11/25 20:47 71 09/11/25 20:47 71 95/65 L 09/11/25 20:45 36.8 C 18 09/11/25 20:42 75 09/11/25 20:37 68 09/11/25 20:36 66 100/67 09/11/25 20:32 75 09/11/25 20:27 72 09/11/25 20:22 72 09/11/25 20:21 70 99/64 L 09/11/25 20:17 72 09/11/25 20:12 69 09/11/25 20:07 72 09/11/25 20:06 70 100/66 09/11/25 20:02 72 09/11/25 19:57 70 09/11/25 19:52 71 09/11/25 19:51 64 97/65 L 09/11/25 19:47 66 09/11/25 19:45 36.5 C 16 09/11/25 19:45 65 103/70 09/11/25 19:42 70 09/11/25 19:37 74 09/11/25 19:36 65 103/64 09/11/25 19:32 71 09/11/25 19:27 72 09/11/25 19:22 70 09/11/25 19:21 67 103/63 09/11/25 19:17 69 103/67 09/11/25 19:15 36.6 C 16 09/11/25 19:12 71 09/11/25 19:07 72 09/11/25 19:06 70 101/63 09/11/25 19:02 75 09/11/25 18:57 72 09/11/25 18:52 74 09/11/25 18:51 73 107/67 09/11/25 18:40 36.6 C 72 18 115/71 09/11/25 18:39 36.8 C 09/11/25 18:30 74 18 116/79 09/11/25 18:24 36.6 C 76 16 113/75 09/11/25 18:20 78 18 122/73 09/11/25 18:12 36.5 C 80 17 116/71 09/11/25 16:52 37.2 C 75 18 113/81 09/11/25 16:06 69 107/61 09/11/25 15:51 77 108/64 09/11/25 15:50 75 106/60 09/11/25 15:21 81 100/57 L 09/11/25 15:06 86 110/61 09/11/25 14:51 87 107/57 L 09/11/25 14:36 73 109/61 09/11/25 14:21 77 100/56 L 09/11/25 14:07 75 114/55 L 09/11/25 13:51 85 108/64 09/11/25 13:36 72 117/70 09/11/25 13:21 77 108/72 09/11/25 13:06 80 132/71 09/11/25 12:52 77 141/74 H 09/11/25 12:36 86 138/67 09/11/25 12:22 81 107/58 L 09/11/25 12:18 88 09/11/25 12:16 82 09/11/25 12:13 81 09/11/25 12:10 79 09/11/25 12:08 76 09/11/25 12:06 82 109/70 09/11/25 12:03 73 09/11/25 11:58 74 09/11/25 11:55 36.6 C 09/11/25 11:53 79 09/11/25 11:48 71 09/11/25 11:43 70 09/11/25 11:38 73 09/11/25 11:33 72 09/11/25 11:30 16 09/11/25 11:30 16 09/11/25 11:28 73 09/11/25 11:23 72 09/11/25 11:18 74 09/11/25 11:13 73 09/11/25 11:08 75 09/11/25 11:05 72 107/62 09/11/25 11:03 72 09/11/25 11:01 72 110/60 09/11/25 11:00 16 09/11/25 11:00 16 09/11/25 10:58 72 09/11/25 10:56 76 112/63 09/11/25 10:53 75 09/11/25 10:50 75 109/62 09/11/25 10:48 75 09/11/25 10:45 77 16 113/63 09/11/25 10:43 81 Pulse Ox O2 Del Method O2 Flow Rate 09/11/25 22:12 98 09/11/25 22:07 98 09/11/25 22:06 09/11/25 22:02 98 09/11/25 21:57 98 09/11/25 21:52 97 09/11/25 21:51 09/11/25 21:47 98 09/11/25 21:46 09/11/25 21:42 96 09/11/25 21:37 96 09/11/25 21:36 09/11/25 21:32 98 09/11/25 21:27 97 09/11/25 21:22 97 09/11/25 21:21 09/11/25 21:17 96 09/11/25 21:12 98 09/11/25 21:07 97 09/11/25 21:06 09/11/25 21:02 96 09/11/25 20:57 97 09/11/25 20:52 97 09/11/25 20:51 09/11/25 20:47 97 09/11/25 20:47 09/11/25 20:47 09/11/25 20:45 09/11/25 20:42 97 09/11/25 20:37 97 09/11/25 20:36 09/11/25 20:32 97 09/11/25 20:27 97 09/11/25 20:22 98 09/11/25 20:21 09/11/25 20:17 98 09/11/25 20:12 98 09/11/25 20:07 98 09/11/25 20:06 09/11/25 20:02 97 09/11/25 19:57 96 09/11/25 19:52 97 09/11/25 19:51 09/11/25 19:47 96 09/11/25 19:45 09/11/25 19:45 09/11/25 19:42 96 09/11/25 19:37 97 09/11/25 19:36 09/11/25 19:32 97 09/11/25 19:27 96 09/11/25 19:22 96 09/11/25 19:21 09/11/25 19:17 96 09/11/25 19:15 09/11/25 19:12 96 09/11/25 19:07 96 09/11/25 19:06 09/11/25 19:02 96 09/11/25 18:57 96 09/11/25 18:52 96 09/11/25 18:51 09/11/25 18:40 95 Room Air 09/11/25 18:39 09/11/25 18:30 94 Room Air 09/11/25 18:24 94 09/11/25 18:20 96 Room Air 09/11/25 18:12 97 Oxymask 4 09/11/25 16:52 98 Room Air 09/11/25 16:06 09/11/25 15:51 09/11/25 15:50 09/11/25 15:21 09/11/25 15:06 09/11/25 14:51 09/11/25 14:36 09/11/25 14:21 09/11/25 14:07 09/11/25 13:51 09/11/25 13:36 09/11/25 13:21 09/11/25 13:06 09/11/25 12:52 09/11/25 12:36 09/11/25 12:22 09/11/25 12:18 100 09/11/25 12:16 92 09/11/25 12:13 98 09/11/25 12:10 92 09/11/25 12:08 95 09/11/25 12:06 09/11/25 12:03 97 09/11/25 11:58 96 09/11/25 11:55 09/11/25 11:53 95 09/11/25 11:48 97 09/11/25 11:43 96 09/11/25 11:38 96 09/11/25 11:33 97 09/11/25 11:30 09/11/25 11:30 09/11/25 11:28 98 09/11/25 11:23 97 09/11/25 11:18 96 09/11/25 11:13 96 09/11/25 11:08 99 09/11/25 11:05 09/11/25 11:03 98 09/11/25 11:01 09/11/25 11:00 09/11/25 11:00 09/11/25 10:58 97 09/11/25 10:56 09/11/25 10:53 98 09/11/25 10:50 09/11/25 10:48 97 09/11/25 10:45 09/11/25 10:43 97
[2025-09-11 23:15] LABS: Hematocrit (blood only) 32.0 % (37.0-47.0); Hemoglobin 10.7 g/dL (12.0-16.0); Mean Corpuscular Hemoglobin 29.8 pg (25.0-34.0); Mean Corpuscular Volume 89.1 fL (80.0-100.0); Platelet Count 170 K/uL (130-400); RDW Standard Deviation 45.1 fL (36.4-46.3); Red Blood Count 3.59 M/uL (4.20-5.40); White Blood Count 16.61 K/ul (4.8-10.8)
[2025-09-12 06:23] LABS: Hematocrit (blood only) 27.9 % (37.0-47.0); Hemoglobin 9.4 g/dL (12.0-16.0); Mean Corpuscular Hemoglobin 30.1 pg (25.0-34.0); Mean Corpuscular Volume 89.4 fL (80.0-100.0); Platelet Count 167 K/uL (130-400); RDW Standard Deviation 46.0 fL (36.4-46.3); Red Blood Count 3.12 M/uL (4.20-5.40); White Blood Count 14.25 K/ul (4.8-10.8)
[2025-09-12] MEDS: PRENATAL VITAMIN 1 TAB PO SCH (07:37)
[2025-09-12] MEDS: FERROUS SULFATE 325 MG TAB PO SCH (07:37)
[2025-09-12] MEDS: SERTRALINE HCL 50 MG TABLET PO SCH (07:38)
[2025-09-12] MEDS ORDERED: FERROUS SULFATE 325 MG TAB PO SCH (08:00)
[2025-09-12] MEDS ORDERED: PRENATAL VITAMIN 1 TAB PO SCH (08:00)
[2025-09-12] MEDS ORDERED: DOCUSATE SODIUM 100 MG CAP PO SCH (09:00)
[2025-09-12] MEDS: METHYLERGONOVINE MALEATE 0.2 MG TAB PO SCH (09:11)
[2025-09-12] MEDS: IRON SUCROSE 200 MG in SODIUM CHLORIDE 0.9% 100 ML IV ONE (09:11)
[2025-09-12] MEDS ORDERED: Nursing to Pharmacy Communication SCH (09:15)
--- NOTE | 2025-09-12 09:40 | Obstetrical Progress Note ---
Date of Service September 12, 2025 Assessment & Plan Admission and Anticipated Discharge Date Admission Date: September 10, 2025 Subjective Patient is seen and examined. She feels well, no complaints. Ambulating without dizziness Has not Voided yet, george was removed this morning. Tolerating regular diet with out N&V Bleeding is minimal No fever/ chills/ CP/ SOB/ N&V/ Leg pain Breast feeding without problems Vital Signs Temp Pulse Pulse Resp BP BP Pulse Ox 09/12/25 07:30 36.7 C 77 16 93/72 L 100 09/12/25 04:02 67 94/52 L 09/12/25 04:00 36.9 C 18 09/12/25 01:34 80 108/57 L 09/12/25 01:30 37.1 C 16 09/11/25 22:51 82 100/58 L 09/11/25 22:45 36.8 C 18 09/11/25 22:44 76 91/53 L 09/11/25 22:12 78 98 09/11/25 22:07 69 98 09/11/25 22:06 85 104/70 09/11/25 22:02 70 98 09/11/25 21:57 83 98 09/11/25 21:52 84 97 09/11/25 21:51 82 97/54 L 09/11/25 21:47 94 H 98 09/11/25 21:46 83 106/70 09/11/25 21:45 36.9 C 18 09/11/25 21:42 73 96 O2 Del Method 09/12/25 07:30 Room Air 09/12/25 04:02 09/12/25 04:00 09/12/25 01:34 09/12/25 01:30 09/11/25 22:51 09/11/25 22:45 09/11/25 22:44 09/11/25 22:12 09/11/25 22:07 09/11/25 22:06 09/11/25 22:02 09/11/25 21:57 09/11/25 21:52 09/11/25 21:51 09/11/25 21:47 09/11/25 21:46 09/11/25 21:45 09/11/25 21:42 09/12/25 09/11/25 09/11/25 Range/Units 05:52 22:57 18:20 WBC 14.25 H 16.61 H (4.8-10.8) K/ul RBC 3.12 L 3.59 L (4.20-5.40) M/uL Hgb 9.4 L 10.7 L 9.5 L (12.0-16.0) g/dL POC Hgb (12.0-16.0) g/dl Hct 27.9 L 32.0 L 28.3 L (37.0-47.0) % POC Hct (37-47) % MCV 89.4 89.1 (80.0-100.0) fL MCH 30.1 29.8 (25.0-34.0) pg MCHC 33.7 33.4 (32.0-36.0) g/dL RDW Std Deviation 46.0 45.1 (36.4-46.3) fL RDW Coeff of Rachele 14.2 13.9 (11.5-14.5) % Plt Count 167 170 (130-400) K/uL MPV 11.2 11.0 (9.4-12.4) fL POC Sodium (135-144) mmol/L POC Potassium (3.3-5.0) mmol/L POC Chloride (101-112) mmol/L POC Total CO2 (24-31) mmol/L POC Anion Gap (16-25) mmol/L POC BUN (7-18) mg/dl POC Creatinine (0.6-1.3) mg/dl POC Glucose (other) (70-99) mg/dl POC Ioniz Calcium Kalie (1.12-1.32) mmol/l Blood Type Antibody Screen Crossmatch 09/11/25 09/10/25 Range/Units 18:00 22:33 WBC (4.8-10.8) K/ul RBC (4.20-5.40) M/uL Hgb (12.0-16.0) g/dL POC Hgb 8.2 L (12.0-16.0) g/dl Hct (37.0-47.0) % POC Hct 24 L (37-47) % MCV (80.0-100.0) fL MCH (25.0-34.0) pg MCHC (32.0-36.0) g/dL RDW Std Deviation (36.4-46.3) fL RDW Coeff of Rachele (11.5-14.5) % Plt Count (130-400) K/uL MPV (9.4-12.4) fL POC Sodium 136 (135-144) mmol/L POC Potassium 4.0 (3.3-5.0) mmol/L POC Chloride 105 (101-112) mmol/L POC Total CO2 20 L (24-31) mmol/L POC Anion Gap 16.0 (16-25) mmol/L POC BUN 4 L (7-18) mg/dl POC Creatinine 0.5 L (0.6-1.3) mg/dl POC Glucose (other) 77 (70-99) mg/dl POC Ioniz Calcium Kalie 1.25 (1.12-1.32) mmol/l Blood Type A Positive Antibody Screen NEGATIVE Crossmatch See Detail PE: General: Alert, orientedx3, NAD Abd: soft, NT, fundus firm, below Umbilicus Perineum intact, Lochia rubra minimal Ext; NT, no edema AP: 35 yo s/p , D&C and placemtn of SHANELLE in OR yesterday, ppd# 1 VSS Afebrile doing well Shanelle was removed, minimla lochia H&H stable, received 1 unit of PRBB Continue PO Methergine, IV AB, Iron Continue to monitor closely All questions were answered D/C home tomorrow Results & Data Vital Signs (Past 12 Hours) Vital Signs Temp Pulse Pulse Resp BP BP Pulse Ox 09/12/25 07:30 36.7 C 77 16 93/72 L 100 09/12/25 04:02 67 94/52 L 09/12/25 04:00 36.9 C 18 09/12/25 01:34 80 108/57 L 09/12/25 01:30 37.1 C 16 09/11/25 22:51 82 100/58 L 09/11/25 22:45 36.8 C 18 09/11/25 22:44 76 91/53 L 09/11/25 22:12 78 98 09/11/25 22:07 69 98 09/11/25 22:06 85 104/70 09/11/25 22:02 70 98 09/11/25 21:57 83 98 09/11/25 21:52 84 97 09/11/25 21:51 82 97/54 L 09/11/25 21:47 94 H 98 09/11/25 21:46 83 106/70 09/11/25 21:45 36.9 C 18 09/11/25 21:42 73 96 O2 Del Method 09/12/25 07:30 Room Air 09/12/25 04:02 09/12/25 04:00 09/12/25 01:34 09/12/25 01:30 09/11/25 22:51 09/11/25 22:45 09/11/25 22:44 09/11/25 22:12 09/11/25 22:07 09/11/25 22:06 09/11/25 22:02 09/11/25 21:57 09/11/25 21:52 09/11/25 21:51 09/11/25 21:47 09/11/25 21:46 09/11/25 21:45 09/11/25 21:42
--- NOTE | 2025-09-12 21:21 | Obstetrical Progress Note ---
Date of Service September 12, 2025 Assessment & Plan Admission and Anticipated Discharge Date Admission Date: September 10, 2025 Subjective Patient is reevaluated, seen and examined. She feels well, no complaints. Ambulating without dizziness Voiding without difficulty Tolerating regular diet with out N&V Bleeding is minimal No fever/ chills/ CP/ SOB/ N&V/ Leg pain Breast feeding without problems Vital Signs Temp Pulse Pulse Resp BP BP Pulse Ox 09/12/25 20:05 36.7 C 76 18 94/55 L 97 09/12/25 12:00 36.7 C 75 14 95/52 L 98 09/12/25 09:42 36.6 C 71 109/71 97 O2 Del Method 09/12/25 20:05 Room Air 09/12/25 12:00 Room Air 09/12/25 09:42 Room Air PE: General: Alert, orientedx3, NAD Abd: soft, NT, fundus firm, below Umbilicus Perineum intact, Lochia rubra minimal Ext; NT, no edema AP: 35 yo s/p , D&C, Shanelle placement for PPH, ppd# 1 VSS Afebrile doing well H&H stable Repeat labs in am Start PO Augmentin in am Continue routine care All questions were answered Discussed d/c meds and when to call D/C home after breakfast f/u in office in 3 and 6 weeks Results & Data Vital Signs (Past 12 Hours) Vital Signs Temp Pulse Pulse Resp BP BP Pulse Ox 09/12/25 20:05 36.7 C 76 18 94/55 L 97 09/12/25 12:00 36.7 C 75 14 95/52 L 98 09/12/25 09:42 36.6 C 71 109/71 97 O2 Del Method 09/12/25 20:05 Room Air 09/12/25 12:00 Room Air 09/12/25 09:42 Room Air
[2025-09-13 06:22] LABS: Hematocrit (blood only) 25.8 % (37.0-47.0); Hemoglobin 8.5 g/dL (12.0-16.0); Immature Granulocytes # (auto) 0.13 K/uL (0.01-0.20); Immature Granulocytes % (auto) 1.7 %; Mean Corpuscular Hemoglobin 29.9 pg (25.0-34.0); Mean Corpuscular Volume 90.8 fL (80.0-100.0); Platelet Count 134 K/uL (130-400); RDW Standard Deviation 48.0 fL (36.4-46.3); Red Blood Count 2.84 M/uL (4.20-5.40); White Blood Count 7.82 K/ul (4.8-10.8)
[2025-09-13] MEDS: AMOXICILLIN/CLAVULANATE 875 MG TAB PO SCH (07:33)
[2025-09-13 07:50] VITALS: PULSE 77; RESP 17; TEMP 98.1; O2SAT 99
[2025-09-13 08:05] VITALS: BP 95/52
--- NOTE | 2025-09-13 08:56 | Obstetrical Progress Note ---
Date of Service September 13, 2025 Assessment & Plan Admission and Anticipated Discharge Date Admission Date: September 10, 2025 Subjective Patient is seen and examined. She feels well, no complaints. Ambulating without dizziness Voiding without difficulty Tolerating regular diet with out N&V Bleeding is minimal No fever/ chills/ CP/ SOB/ N&V/ Leg pain Breast feeding without problems Vital Signs Temp Pulse Pulse Resp BP BP Pulse Ox 09/13/25 08:03 36.7 C 75 77 17 95/52 L 110/70 99 09/13/25 07:46 36.7 C 77 17 110/70 99 09/12/25 23:44 36.8 C 73 18 103/67 96 09/12/25 20:05 36.7 C 76 18 94/55 L 97 09/12/25 12:00 36.7 C 75 14 95/52 L 98 09/12/25 09:42 36.6 C 71 109/71 97 O2 Del Method 09/13/25 08:03 09/13/25 07:46 Room Air 09/12/25 23:44 Room Air 09/12/25 20:05 Room Air 09/12/25 12:00 Room Air 09/12/25 09:42 Room Air Intake and Output 09/12/25 09/13/25 09/13/25 22:59 06:59 14:59 Other: Weight 83.461 kg Patient Weight 09/14/25 06:59 Weight 83.461 kg 09/13/25 Range/Units 05:54 WBC 7.82 (4.8-10.8) K/ul RBC 2.84 L (4.20-5.40) M/uL Hgb 8.5 L (12.0-16.0) g/dL Hct 25.8 L (37.0-47.0) % MCV 90.8 (80.0-100.0) fL MCH 29.9 (25.0-34.0) pg MCHC 32.9 (32.0-36.0) g/dL RDW Std Deviation 48.0 H (36.4-46.3) fL RDW Coeff of Rachele 14.3 (11.5-14.5) % Plt Count 134 (130-400) K/uL MPV 10.9 (9.4-12.4) fL Immature Gran % (Auto) 1.7 % Neut % (Auto) 67.5 % Lymph % (Auto) 19.1 % Barry % (Auto) 9.1 % Eos % (Auto) 2.3 % Baso % (Auto) 0.3 % Neut # (Auto) 5.29 (1.40-6.50) K/uL Lymph # (Auto) 1.49 (1.20-3.40) K/uL Barry # (Auto) 0.71 H (0.11-0.59) K/uL Eos # (Auto) 0.18 (0.00-0.50) K/uL Baso # (Auto) 0.02 (0.00-0.20) K/uL Immature Gran # (Auto) 0.13 (0.01-0.20) K/uL PE: General: Alert, orientedx3, NAD Abd: soft, NT, fundus firm, below Umbilicus Perineum intact, Lochia rubra minimal Ext; NT, no edema AP: 35 yo s/p , D&C for PPH, ppd# 2 VSS Afebrile doing well H&H stable Discussed iron intake, contraception Continue routine care All questions were answered D/C home , f/u in office Results & Data Vital Signs (Past 12 Hours) Vital Signs Temp Pulse Pulse Resp BP BP Pulse Ox 09/13/25 08:03 36.7 C 75 77 17 95/52 L 110/70 99 09/13/25 07:46 36.7 C 77 17 110/70 99 09/12/25 23:44 36.8 C 73 18 103/67 96 O2 Del Method 09/13/25 08:03 09/13/25 07:46 Room Air 09/12/25 23:44 Room Air
== END 2025-09-13 10:50 | disposition home health service (06) | DRG 768 ==
LOC: OPB 21:50 → 4S1 21:53 → 4E2 09-12 06:35